=== PATIENT | female | born 1965 | race Caucasian/White ===

== ENCOUNTER 2021-10-26 13:10 | Outpatient (RCR) | payer OTHER, SELFPAY | END 2021-11-13 23:59 | disposition home or self-care (01) | LOC: CCIC 13:10 | PROVIDERS: PCP Family Medicine; Visit Provider Internal Medicine Hematology & Oncology | DX: C50.912 Malignant neoplasm of unspecified site of left female breast (principal); C50.911 Malignant neoplasm of unspecified site of right female breast; Z17.0 Estrogen receptor positive status [ER+] | CPT/HCPCS: 99202; 99205 ==

== ENCOUNTER 2021-12-01 14:13 | Outpatient (CLI) | payer OTHER, SELFPAY ==
--- NOTE | 2021-12-01 14:30 | XR_ITS ---
Final Report Patient: YASH BAEZA Facility:?[facility] Patient ID:?[id number] :?[id number] Study:?DEXA Spine DEXA - Spine/Hips-12/01/2021 2:59:40 PM Ordering Physician:Dary Sandhu Final Report: DXA BONE MINERAL DENSITY STUDY Current height (in): 61. Weight (lb): 180. Menopause age: 50. Ethnicity: White. 1. Have you had a previous hip or vertebral fracture? No. 2. Have you had any fractures during your adult life which did not result from significant trauma (e.g., auto accident)? No. 3. Did either of your parents have a hip fracture? No. 4. Do you smoke? No. 5. Have you ever taken Glucocorticoids? No. 6. Do you have rheumatoid arthritis? No. 7. Do you have secondary osteoporosis? No. 8. Do you drink 3 or more alcoholic drinks per day? No. 9. Are you being treated for osteoporosis? No. 10. Have you ever taken any of the following medications: Actonel, Evista, Fosamax, Miacalcin, Reclast, Boniva, Forteo, HRT (i.e. estrogen/hormone therapy), Protelos, Prolia, Vitamin D, Calcium, other ? please specify. ANSWER: Yes, Vitamin D, HRT. 11. Do you have any of the following medical conditions: Anorexia or bulimia, asthma or emphysema, end stage renal disease, hyperparathyroidism, any seizure disorders, cancer, inflammatory bowel diseases, hysterectomy, other ? please specify. ANSWER: Yes, Asthma or emphysema, cancer. 12. What was your maximum height (inches)? 61. 13. Do you perform weight bearing exercise regularly? Yes. 14. Do you regularly consume dairy products? Yes. 15. Do you drink caffeinated beverages? Yes. 16. At what age did your period start? 10. 17. Are you premenopausal? No. 18. How many full term pregnancies have you had? 2. 19. Have you ever missed your period for more than 6 months in a row (not including or menopause)? No. TECHNIQUE: Bone mineral density study was performed using the [employer]. FINDINGS: The results of the study expressed as bone mineral density (BMD) are as follows: Lumbar spine L1 to L4: BMD: 0.980 g/cm2. T-score: -0.6. Z-score: 0.7. Neck Left: BMD: 0.738 g/cm2. T-score: -1.0. Z-score: 0.2. Right: BMD: 0.694 g/cm2. T-score: -1.4. Z-score: -0.2. Total Left: BMD: 0.896 g/cm2. T-score: -0.4. Z-score: 0.5. Right: BMD: 0.873 g/cm2. T-score: -0.6. Z-score: 0.3. IMPRESSION: Osteopenia. FRAX 10-year Fracture Risk Major Osteoporotic Fracture: 7.0 percent Hip Fracture: 0.5 percent Reported Risk Factors: [place] () Neck BMD = 0.694, BMI = 34.0 Anton Majano M.D. Diagnostic Radiologist [email or web address] D& Transcribed: 5: 45 p.m. JAMES/Dictated by: Anton Majano MD @ 12/01/2021 3:27:00 PM (Electronic Signature)
== END 2021-12-01 14:14 | disposition home or self-care (01) ==
LOC: RAD 14:15
PROVIDERS: PCP Nurse Practitioner Family; Visit Provider Internal Medicine Hematology & Oncology
DX: C50.919 Malignant neoplasm of unspecified site of unspecified female breast (principal); M85.89 Other specified disorders of bone density and structure, multiple sites
CPT/HCPCS: 77080

== ENCOUNTER 2022-03-29 09:45 | Outpatient (RCR) | payer OTHER, SELFPAY | END 2022-06-26 23:59 | disposition home or self-care (01) | LOC: CCIC 09:45 | PROVIDERS: PCP Nurse Practitioner Family; Visit Provider Internal Medicine Hematology & Oncology | DX: C50.911 Malignant neoplasm of unspecified site of right female breast (principal); C50.912 Malignant neoplasm of unspecified site of left female breast; N61.0 Mastitis without abscess; L59.8 Other specified disorders of the skin and subcutaneous tissue related to radiation | CPT/HCPCS: 99212; 99214; 99215 ==

== ENCOUNTER 2022-04-04 09:52 | Outpatient (CLI) | payer OTHER, SELFPAY ==
--- NOTE | 2022-04-04 09:45 | CRLHL7_ITS ---
For Patients: As a result of the Cures Act, medical imaging exams and procedure reports are released immediately into your electronic medical record. You may view this report before your referring provider. If you have questions, please contact your health care provider. DIGITAL DIAGNOSTIC BILATERAL MAMMOGRAM USING TOMOSYNTHESIS AND COMPUTER-AIDED DETECTION BILATERAL BREAST ULTRASOUND CLINICAL HISTORY: BILATERAL breast redness/warmth. COMPARISON: 08/29/2021, 08/24/2021, 08/12/2021. TECHNIQUE: Digital BILATERAL mammogram in four projections. Tomosynthesis and CAD were utilized. Real-time ultrasound imaging of BILATERAL breast with imaging documentation. BREAST COMPOSITION: There are areas of scattered fibroglandular density. FINDINGS: Bilateral 3D CC/MLO mammogram submitted bilaterally. Post treatment changes are present bilaterally including BILATERAL lumpectomies and BILATERAL postradiation change. Skin thickening noted bilaterally, RIGHT greater than LEFT. No adenopathy. Expected scar tissue present within the lumpectomy sites bilaterally. No evidence of suspicious masses or suspicious architectural distortion. Targeted BILATERAL ultrasound examination performed. On the RIGHT, targeted sonogram to an area of redness at 9 o`clock 6 cm from the nipple performed. Skin thickening is present with mild subcutaneous edema. No underlying lesion. On the LEFT, targeted sonogram performed at 6 o`clock 4 cm from the nipple corresponding to an area of focal tenderness. Again, skin thickening noted with subcutaneous edema. No fluid collection or suspicious mass. IMPRESSION: BILATERAL post lumpectomy/XRT changes with skin thickening and subcutaneous edema. No evidence of abscess or suspicious mass. RECOMMENDATIONS: Clinical follow-up. Results and recommendations discussed with the patient. BI-RADS Category 2: Benign A lay language report of this examination will be provided to the patient. Dictated by Anton Majano MD @ 04/04/2022 11:36:15 AM jj/Dictated by: Anton Majano MD @ 04/04/2022 11:36:00 AM (Electronically Signed)
--- NOTE | 2022-04-04 10:15 | CRLHL7_ITS ---
For Patients: As a result of the Cures Act, medical imaging exams and procedure reports are released immediately into your electronic medical record. You may view this report before your referring provider. If you have questions, please contact your health care provider. PLEASE SEE DIGITAL DIAGNOSTIC BILATERAL MAMMOGRAM PERFORMED SAME DAY CRL:norma green/Dictated by: Anton Majano MD @ 04/04/2022 11:36:00 AM (Electronically Signed)
== END 2022-04-04 09:53 | disposition home or self-care (01) ==
LOC: MAMMO 09:53
PROVIDERS: PCP Nurse Practitioner Family; Visit Provider Internal Medicine Hematology & Oncology
DX: N61.0 Mastitis without abscess (principal)
CPT/HCPCS: 76642; 77066; G0279

== ENCOUNTER 2023-01-12 16:15 | Emergency (ER) | payer OTHER, SELFPAY ==
[2023-01-12 16:18] VITALS: BP 133/81; PULSE 68; RESP 18; TEMP 36.7; O2SAT 98; BMI 30.4
--- NOTE | 2023-01-12 17:30 | CRLHL7_ITS ---
For Patients: As a result of the Century Cures Act, medical imaging exams and procedure reports are released immediately into your electronic medical record. You may view this report before your referring provider. If you have questions, please contact your health care provider. INDICATION: Vomiting, abdominal pain, diarrhea. TECHNIQUE: CT abdomen and pelvis acquired with 74 cc Isovue 370 IV contrast. COMPARISON: None. FINDINGS: Lower chest: Scattered atelectasis. Liver: Unremarkable. Normal in size and attenuation. No suspicious masses. Gallbladder and bile ducts: Focal hyperdensity about the gallbladder fundus, possibly adenomyomatosis. No inflammation. No biliary dilatation. Pancreas: Unremarkable. No mass or inflammation. Spleen: Scattered granulomas. Normal in size. No masses. Adrenal glands: Unremarkable. No nodules. Kidneys: Unremarkable. No suspicious masses, stones, or hydronephrosis. GI tract: Mild colonic wall thickening accentuated by nondistention.. Normal in caliber. No sign of mass or inflammation. Normal appendix. Vasculature: Mild aortoiliac arterial calcifications. Abdominal aorta is normal in caliber. Mesenteric arteries are patent. Lymph nodes: No lymphadenopathy. Peritoneum/Abdominal Wall: Unremarkable. No sign of mass or infiltration. No free air or significant free fluid. Pelvis: Mildly distended bladder circumferential wall thickening. Bones: Unremarkable for age. IMPRESSION: Mild colonic wall thickening accentuated by nondistention. Low-grade colitis not excluded. Mildly distended bladder with circumferential wall thickening. Recommend correlation with urinalysis if UTI suspected. Otherwise, no acute intra-abdominal/pelvic abnormality. Please note that all CT scans at this facility use dose modulation, iterative reconstruction, and/or weight-based dosing when appropriate to reduce radiation dose to as low as reasonably achievable. Dictated by John Mazariegos MD @ 01/12/2023 6:40:48 PM (Electronically Signed)
[2023-01-12] MEDS: ONDANSETRON 2 MG/ML inj 4 MG IVP (17:50)
[2023-01-12] MEDS: 0.9 % SODIUM CHLORIDE 1000 ml 1,000 ML IV (17:50)
[2023-01-12 17:59] LABS: Basophils Absolute Auto 0.07 K/uL (0.00-0.30); Basophils Percent Auto 1.3 % (0.0-3.0); Hematocrit 38.2 % (33.0-51.0); Hemoglobin* 12.4 gm/dL (12.0-16.0); Immature Granulocytes Abs Auto 0.01 K/uL (0.00-0.30); Immature Granulocytes Pct Auto 0.2 %; Lymphocytes Absolute Auto 1.73 K/uL (0.90-2.90); Lymphocytes Percent Auto 32.3 % (20-44); Mean Corpuscular HGB Conc 33 gm/dL (32-36); Mean Corpuscular Hemoglobin 29 pg (26-34); Mean Corpuscular Volume 89 fL (80-100); Monocytes Percent Auto 8.4 % (0.0-11.0); Neutrophils Absolute Auto 2.62 K/uL (1.7-7.0); Neutrophils Percent Auto 48.8 % (42.0-72.0); Platelet Count* 262 K/uL (140-440); RDW Coefficient of Variation % 12.4 % (11.5-15.5); Red Blood Count 4.31 m/uL (4.00-5.20); White Blood Count* 5.36 K/uL (4.50-11.00)
--- NOTE | 2023-01-12 17:59 | ED_ITS ---
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 She began to feel nauseous on Sunday. Although she works in childcare she has no known sick exposures among the children she cares for. She has had nausea ever since then. She was fairly ill and stayed in bed on Sunday, Sunday, and Sunday. Whenever she tries to eat or drink she gets very nauseous and often will have watery diarrhea. She is not vomiting. She does have some abdominal pain but that is not as intense as the nausea. No fever. No cough. No nasal congestion. No sore throat. Urination has been normal. She has been able to keep some fluids down. She has ongoing nausea, and it just isn't getting better, so her encouraged to come here to the ER today. She has no history of similar episodes of nausea. She indicates that she has had No previous abdominal surgeries. However, medical record indicates that she has had tubal ligation, unilateral oophorectomy, Related Data Home Medications Medication Instructions Recorded Confirmed amitriptyline 150 mg tablet 150 mg PO QDAY 12/28/21 08/10/22 fluticasone propionate 50 2 spray intranasal QDAY 12/28/21 08/10/22 mcg/actuation nasal spray,suspension (Flonase Allergy Relief) ibuprofen 600 mg tablet 600 mg PO Q8H PRN 12/28/21 08/10/22 pravastatin 40 mg tablet 40 mg PO QDAY 12/28/21 08/10/22 Previous Rx's Medication Instructions Recorded anastrozole 1 mg tablet (Arimidex) 1 mg PO QDAY #90 tabs 12/28/21 ciprofloxacin HCl 500 mg tablet 500 mg PO BID #14 tabs 01/12/23 (Cipro) metronidazole 500 mg tablet 500 mg PO TID #21 tabs 01/12/23 prochlorperazine maleate 10 mg 10 mg PO Q8H PRN #10 tabs 01/12/23 tablet (Compazine) Allergies Allergy/AdvReac Type Severity Reaction Status Date / Time No Known Drug Allergies Allergy Verified 08/10/22 14:38 [facility] Medical History (Updated 01/12/23 @ 19:54 by Kirby Ritter MD) Hyperlipidemia ?E78.5 - Hyperlipidemia, unspecified (ICD-10) History of migraine ?Z86.69 - Personal history of other diseases of the nervous system and sense organs (ICD-10) Herpes zoster ?B02.9 - Zoster without complications (ICD-10) Fibromyalgia ?M79.7 - Fibromyalgia (ICD-10) Depression ?F32.A - Depression, unspecified (ICD-10) Chronic insomnia ?F51.04 - Psychophysiologic insomnia (ICD-10) Anxiety ?F41.9 - Anxiety disorder, unspecified (ICD-10) Allergic rhinitis ?J30.9 - Allergic rhinitis, unspecified (ICD-10) Surgical History (Updated 12/26/21 @ 15:43 by Ann-Marie Nelson, DESK MANAGER) History of unilateral oophorectomy ?Z90.721 - Acquired absence of ovaries, unilateral (ICD-10) History of tubal ligation ?Z98.51 - Tubal ligation status (ICD-10) History of tonsillectomy and adenoidectomy ?Z90.89 - Acquired absence of other organs (ICD-10) History of sinus surgery ?Z98.890 - Other specified postprocedural states (ICD-10) History of cervical spinal arthrodesis (2006) ?Z98.1 - Arthrodesis status (ICD-10) History of 2 sections ?Z98.891 - History of uterine scar from previous surgery (ICD-10) S/P bilateral breast lumpectomy ?Z98.890 - Other specified postprocedural states (ICD-10) Social History Smoking Status: Former smoker Do you use any of these nicotine containing products: None Second hand tobacco smoke exposure: No How often do you have a drink containing alcohol: monthly or less How many standard drinks containing alcohol do you have on a typical day: 1 or 2 How often do you have six or more drinks on one occasion: Never AUDIT-C Alcohol total score: 1 Non-prescribed substance use: denies use service: No Exam Narrative: Exam Narrative: Constitutional: Appears well-developed and well-nourished. Alert. Conversant. Non toxic. She is nauseous and has some mild retching during our evaluation but no vomiting. HENT: Head: Atraumatic. Nose: Nose normal. Mouth/Throat: Oral mucosa is clear and dry but not desiccated or cracked. no trismus. Pharynx normal. Tonsils symmetric. No tonsillar enlargement, erythema, or exudate. Eyes: Conjunctivae normal. EOM normal. Pupils equal, round, and reactive to light. No scleral icterus. Neck: Normal range of motion. Neck supple. No tracheal deviation present. Cardiovascular: Normal rate, regular rhythm. No gallop. No friction rub. No murmur heard. Symmetric radial artery pulses Pulmonary/Chest: Effort normal. No stridor. No respiratory distress. No wheezes. No rales. No rhonchi . Abdominal: Soft. Bowel sounds normal. No distension. No mass. Epigastric tenderness and mild left-sided tenderness. No rebound. No guarding. No definite right upper quadrant tenderness or Hinton sign. No significant right lower quadrant tenderness. Musculoskeletal: RUE: Normal range of motion. No tenderness. No deformity LUE: Normal range of motion. No tenderness. No deformity RLE: Normal range of motion. No edema. No tenderness. No deformity LLE: Normal range of motion. No edema. No tenderness. No deformity Lymph: No cervical adenopathy. Neurological: Alert and oriented to person, place, and time. Normal strength. CN II-VII intact. No sensory deficit. GCS eye subscore is 4. GCS verbal subscore is 5. GCS motor subscore is 6. Normal coordination Skin: Skin is warm and dry. No rash noted. No pallor. Normal capillary refill. Psychiatric: Normal mood. Normal affect allowing for nausea. Const: Vital Signs, click to edit/add: Vital Signs - 24 hr 01/12/23 16:18 Temperature 98.1 F Pulse Rate [Right Pulse Oximeter] 68 Respiratory Rate 18 Blood Pressure [Ri ght Upper Arm] 133/81 Pulse Oximetry 98 Oxygen Delivery Me thod Room Air Course Vital Signs Vital signs: Initial Vital Signs Temperature 98.1 F 01/12/23 16:18 Temperature Source Temporal Artery Scan 01/12/23 16:18 Pulse Rate 68 01/12/23 16:18 Respiratory Rate 18 01/12/23 16:18 Blood Pressure 133/81 01/12/23 16:18 Blood Pressure Mean 98 01/12/23 16:18 Blood Pressure Position Sitting 01/12/23 16:18 Pulse Oximetry 98 01/12/23 16:18 Oxygen Delivery Method Room Air 01/12/23 16:18 Vital Signs Temperature 98.1 F 01/12/23 16:18 Pulse Rate 68 01/12/23 16:18 Respiratory Rate 18 01/12/23 16:18 Blood Pressure 133/81 01/12/23 16:18 Pulse Oximetry 98 01/12/23 16:18 Oxygen Delivery Method Room Air 01/12/23 16:18 Temperature 98.1 F 01/12/23 16:18 Pulse Rate 68 01/12/23 16:18 Respiratory Rate 18 01/12/23 16:18 Blood Pressure 133/81 01/12/23 16:18 Pulse Oximetry 98 01/12/23 16:18 Oxygen Delivery Method Room Air 01/12/23 16:18 Medical Decision Making MDM Narrative Medical decision making narrative: Presented to the Emergency Department with nausea, diarrhea, mild abdominal discomfort, fatigue ongoing for the past 5-6 days. Differential is broad. No history of head trauma or other focal neurologic deficits disease suggest a SECURITIES TRADER pathology. She has not had any cough or fever but consider atypical presentation of coronavirus. COVID PCR negative. No hypoxia. The differential diagnosis includes: Appendicitis, Bowel Obstruction, Ulcer, Ischemia, Cholecystitis, Diverticulitis, Pancreatitis, UTI, kidney stone, Enteritis/Colitis, amongst many other etiologies. Laboratory testing does not reveal a cause for the patient's pain. Incidentally white blood cell count differential shows 9% eosinophils, a bit higher than expected. Unclear etiology. No history of allergic phenomenon. No recent new medications to suggest JO ANN SS. CT imaging shows evidence for possible mild bladder wall thick ening however urinalysis is essentially negative for UTI. There is trace bacteriuria and sediment but no pyuria, negative nitrite. CT scan also suggest possible mild colitis (versus under distention of the:). This could correlate with the patient's diarrhea and nausea. No evidence for any surgical pathology such as perforation, abscess. Patient is nontoxic. No recent antibiotics to raise risk for C diff. Will order stool culture and C diff none the less. We will start the patient empirically on Cipro and Flagyl for colitis. No life threatening cause or need for emergent surgery or hospital admission is detected today. The patient was advised that if symptoms do not completely resolve within another 2-3 days re-evaluation with primary care or return to the ED is indicated. Follow-up within 1-2 weeks to recheck CBC. The patient also understands that if they worsen, they should return to the ER right away. I discussed the uncertainty about the diagnosis and answered the patient's questions. Abdominal pain return precautions discussed. Prescriptions for Cipro 500 b.i.d. for 7 days, Flagyl 500 t.i.d. for 7 days, Compazine for nausea. Note. She will need something for nausea overnight tonight. Prescription for Zofran 0 DT that she can use once tonight if needed. Unfortunately [facility] only allows prescription of 10 tablets. This was provided. Patient does have p rolonged QT. She will avoid repetitive Zofran use. Follow-up with primary care. Lab Data Labs: Lab Results 01/12/23 01/12/23 Range/Units 17:46 18:12 WBC 5.36 (4.50-11.00) K/uL RBC 4.31 (4.00-5.20) m/uL Hgb 12.4 (12.0-16.0) gm/dL Hct 38.2 (33.0-51.0) % MCV 89 (80-100) fL MCH 29 (26-34) pg MCHC 33 (32-36) gm/dL RDW Coeff of Kacey 12.4 (11.5-15.5) % Plt Count 262 (140-440) K/uL Neut % (Auto) 48.8 (42.0-72.0) % Lymph % (Auto) 32.3 (20-44) % Stanley % (Auto) 8.4 (0.0-11.0) % Eos % (Auto) 9.0 H (0.0-7.0) % Baso % (Auto) 1.3 (0.0-3.0) % Neut # (Auto) 2.62 (1.7-7.0) K/uL Lymph # (Auto) 1.73 (0.90-2.90) K/uL Stanley # (Auto) 0.50 (0.00-0.90) K/UL Eos # (Auto) 0.50 (0.00-0.50) K/uL Baso # (Auto) 0.07 (0.00-0.30) K/uL Abs Immat Gran (auto) 0.01 (0.00-0.30) K/uL Imm/Tot Granulo (auto) 0.2 % Sodium 142 (135-149) mmol/L Potassium 3.7 (3.6-5.1) mmol/L Chloride 107 (96-114) mmol/L Carbon Dioxide 24 (20-32) mmol/L Anion Gap 11 (7-15) mEq/L BUN 12 (7-30) mg/dL Creatinine 0.8 (0.5-1.5) mg/dL Estimated Creat Clear 57.14 Estimated GFR 85 ml/min Glucose 92 (60-115) mg/dL Calcium 9.6 (8.4-10.6) mg/dL Total Bilirubin 0.3 (0.1-1.5) mg/dL AST 33 (12-35) U/L ALT 24 (4-35) U/L Alkaline Phosphatase 60 (40-150) U/L Total Protein 7.5 (6.0-8.3) g/dL Albumin 4.6 (3.3-5.0) g/dL Lipase 200 (23-300) U/L Urine Color Yellow (Yellow) Urine Appearance Cloudy A (Clear) Urine pH 7.0 (5.0-8.5) Ur Specific Troy 1.015 (1.000-1.030) Urine Protein Negative (Negative) Urine Glucose (UA) Negative (Negative) Urine Ketones Negative (Negative) Urine Blood Negative (Negative) Urine Nitrite Negative (Negative) Urine Bilirubin Negative (Negative) Urine Urobilinogen 0.2 (0.2-1.0) Ur Leukocyte Esterase Negative (Negative) Urine RBC 0-2 (0-2) Urine WBC 0-2 (0-5) Ur Squamous Epith Cells Few (None-Few) Amorphous Sediment Moderate A (None) Urine Bacteria Few A (None) SARS-CoV-2 (PCR) Negative SARS-CoV-2 (Negative) Influenza Type A (PCR) Negative PCR FLU A (Negative) Influenza Type B (PCR) Negative PCR FLU B (Negative) RSV (PCR) Negative PCR RSV (Negative) Imaging Data CT scan - abdomen: Attestation: I have reviewed the pertinent imaging results. Radiologist's impression: IMPRESSION: Mild colonic wall thickening accentuated by nondistention. Low-grade colitis not excluded. Mildly distended bladder with circumferential wall thickening. Recommend correlation with urinalysis if UTI suspected. Otherwise, no acute intra-abdominal/pelvic abnormality. ECG Data Attestation: I personally reviewed and interpreted this ECG as follows: Interpretation: Sinus bradycardia with a rate of 59. Computer notes sinus tach with 2: 1 av conduction. This is inaccurate. The computer is sensing T-waves as P-waves. [place] 138 QRS axis normal axis. ST segment/T wave: T-wave flattening. No ST segment elevation or depression. QTc: 505. Prolonged QT Discharge Plan Discharge Clinical Impression: Colitis, Diarrhea, Nausea Patient Disposition: Home, Self-Care Condition: Stable Instructions: Acute Nausea and Vomiting (ED), Colitis (ED) Additional Instructions: As we discussed, please come back to the ER right away if you have worsening symptoms such as uncontrolled nausea and vomiting, dehydration, weakness, high fever, worsening abdominal pain, or if you have any other problems Please complete the course of antibiotics. If your stool culture grows an unusual source of infection we may contact you to change your antibiotic regimen. Please follow-up with your regular doctor within 1-2 weeks for recheck labs. We notice that 1 kind of white blood cell in your body (your eosinophil count) is slightly elevated today. Prescriptions: New ciprofloxacin HCl [Cipro] 500 mg tablet 500 mg PO BID Qty: 14 0RF metronidazole 500 mg tablet 500 mg PO TID Qty: 21 0RF prochlorperazine maleate [Compazine] 10 mg tablet 10 mg PO Q8H PRNQty: 10 0RF No Action amitriptyline 150 mg tablet 150 mg PO QDAY fluticasone propionate [Flonase Allergy Relief] 50 mcg/actuation spray,suspension 2 spray intranasal QDAY Rx Instructions: administer into each nostril pravastatin 40 mg tablet 40 mg PO QDAY ibuprofen 600 mg tablet 600 mg PO Q8H PRN anastrozole [Arimidex] 1 mg tablet 1 mg PO QDAY Qty: 90 3RF Follow Up/Referrals: Nadya Wagner, ELIAS, DESK MANAGER [Primary Care Provider] - Stand Alone Forms: [employer] Info Instructions
[2023-01-12 18:04] LABS: Slide Review Reflex No
[2023-01-12 18:11] LABS: Albumin* 4.6 g/dL (3.3-5.0); Chloride* 107 mmol/L (96-114)
[2023-01-12 18:12] LABS: Potassium* 3.7 mmol/L (3.6-5.1); Sodium* 142 mmol/L (135-149)
[2023-01-12 18:14] LABS: Anion Gap 11 mEq/L (7-15); Aspartate Amino Transferase* 33 U/L (12-35); Bilirubin Total* 0.3 mg/dL (0.1-1.5); Carbon Dioxide* 24 mmol/L (20-32); Creatinine* 0.8 mg/dL (0.5-1.5); Est. Creatinine Clearance* 57.14; Estimated Glomerular Filt Rate 85 ml/min; Total Protein* 7.5 g/dL (6.0-8.3)
[2023-01-12 18:15] LABS: Alanine Aminotransferase* 24 U/L (4-35); Alkaline Phosphatase* 60 U/L (40-150); Blood Urea Nitrogen* 12 mg/dL (7-30); Calcium* 9.6 mg/dL (8.4-10.6); Glucose* 92 mg/dL (60-115); Lipase* 200 U/L (23-300)
[2023-01-12 18:20] LABS: Appearance Urine Cloudy (Clear); Bilirubin Urine Negative (Negative); Blood Urine Negative (Negative); Color Urine Yellow (Yellow); Glucose Urine Negative (Negative); Ketones Urine Negative (Negative); Leukocyte Esterase Urine Negative (Negative); Nitrite Urine Negative (Negative); Protein Urine Negative (Negative); Specific Gravity Urine 1.015 (1.000-1.030); Urobilinogen Urine 0.2 (0.2-1.0)
[2023-01-12 18:31] LABS: Amorphous Sediment Urine Moderate; Bacteria Urine Few; RBC Urine 0-2 (0-2); Squamous Epithelial Cell Urine Few (None-Few); WBC Urine 0-2 (0-5)
[2023-01-12 18:36] LABS: PCR FLU A Negative PCR FLU A (Negative); PCR FLU B Negative PCR FLU B (Negative); PCR RSV Negative PCR RSV (Negative)
[2023-01-12 18:45] LABS: SARS PCR* Negative SARS-CoV-2 (Negative)
[2023-01-14 15:46] LABS: C.Difficile Negative (Negative); CDIFFEPI 027 PRESUMPTIVE NEGATIVE (Negative)
== END 2023-01-12 20:20 | disposition home or self-care (01) ==
PROVIDERS: Emergency Provider Emergency Medicine; PCP Nurse Practitioner Family
DX: K52.9 Noninfective gastroenteritis and colitis, unspecified (principal); R11.2 Nausea with vomiting, unspecified
CPT/HCPCS: 36415; 74177; 80053; 81001; 83690; 85025; 87045; 87046; 87086; 87427; 87493; 87631; 93005; 96374; 99283; 99284; J2405; J7030; Q9967

== ENCOUNTER 2023-01-31 09:30 | Outpatient (RCR) | payer OTHER, SELFPAY ==
--- NOTE | 2022-07-10 15:18 | ONC.NURNOTE ---
Pressurization Mechanic needed to move patient to Clara Diana' schedule on . LMOM for patient stating that her appointment was moved to [place] schedule. She was informed if she feels that she needs to see Dr. Hearn, that will need to move appointment out.
[2023-01-25 13:46] LABS: Appearance Urine Clear (Clear); Bilirubin Urine Negative (Negative); Blood Urine Negative (Negative); Color Urine Yellow (Yellow); Glucose Urine Negative (Negative); Ketones Urine Negative (Negative); Leukocyte Esterase Urine Negative (Negative); Nitrite Urine Negative (Negative); Protein Urine Negative (Negative); Specific Gravity Urine 1.025 (1.000-1.030); Urobilinogen Urine 0.2 (0.2-1.0)
[2023-01-25 13:51] LABS: Hematocrit 39.8 % (33.0-51.0); Hemoglobin* 12.7 gm/dL (12.0-16.0); Lymphocytes Percent Auto 28.9 % (20-44); Mean Corpuscular HGB Conc 32 gm/dL (32-36); Mean Corpuscular Hemoglobin 29 pg (26-34); Mean Corpuscular Volume 89 fL (80-100); Monocytes Percent Auto 8.4 % (0.0-11.0); Neutrophils Percent Auto 52.8 % (42.0-72.0); Platelet Count* 272 K/uL (140-440); RDW Coefficient of Variation % 12.4 % (11.5-15.5); Red Blood Count 4.45 m/uL (4.00-5.20); White Blood Count* 6.08 K/uL (4.50-11.00)
[2023-01-25 13:52] LABS: Basophils Absolute Auto 0.06 K/uL (0.00-0.30); Eosinophils Percent Auto 8.7 % (0.0-7.0); Immature Granulocytes Abs Auto 0.01 K/uL (0.00-0.30); Immature Granulocytes Pct Auto 0.2 %; Lymphocytes Absolute Auto 1.76 K/uL (0.90-2.90); Neutrophils Absolute Auto 3.21 K/uL (1.7-7.0)
[2023-01-25 13:57] LABS: RBC Urine 0-2 (0-2); WBC Urine 0-2 (0-5)
[2023-01-25 13:58] LABS: Creatinine* 0.9 mg/dL (0.5-1.5); Est. Creatinine Clearance* 50.79; Estimated Glomerular Filt Rate 74 ml/min
[2023-01-25 13:59] LABS: Slide Review Reflex No
[2023-01-25 13:59] LABS: Calcium* 9.3 mg/dL (8.4-10.6)
--- NOTE | 2023-01-26 15:39 | URNOTE ---
Request received for authorization for [employer] ([id number]). Prior Authorization is not required by [employer], per Serafin Haas (Ref#[id number]).
--- NOTE | 2023-01-30 13:08 | ONC.NURNOTE ---
Received message from Clara Diana PA-C that labs from 01/25/23 were reviewed and she would like pt to come return in one month for a CBC w/diff and CMP, Clara is following her eosinophils. Left message for pt to call to schedule.
[2023-01-31 09:33] VITALS: BP 125/74; PULSE 68; RESP 16; TEMP 35.8; O2SAT 97
[2023-01-31] MEDS: ZOLEDRONIC ACID 4 MG in 0.9 % SODIUM CHLORIDE 100 ml 100 ML 420 MG IVPB (10:15)
== END 2023-02-06 23:59 | disposition home or self-care (01) ==
LOC: CCIC 09:30
PROVIDERS: Physician Assistant; PCP Nurse Practitioner Family; Referring Provider Nurse Practitioner Family; Visit Provider Internal Medicine Hematology & Oncology
DX: C50.911 Malignant neoplasm of unspecified site of right female breast (principal); C50.912 Malignant neoplasm of unspecified site of left female breast; Z17.0 Estrogen receptor positive status [ER+]; M85.80 Other specified disorders of bone density and structure, unspecified site; Z79.811 Long term (current) use of aromatase inhibitors
CPT/HCPCS: 36415; 81001; 82310; 82565; 85025; 96374; 99212; 99214; 99215; J3489

== ENCOUNTER 2023-08-03 13:30 | Outpatient (RCR) | payer OTHER, SELFPAY ==
[2023-02-26 10:43] LABS: Basophils Absolute Auto 0.06 K/uL (0.00-0.30); Basophils Percent Auto 0.6 % (0.0-3.0); Eosinophils Percent Auto 4.8 % (0.0-7.0); Hematocrit 38.8 % (33.0-51.0); Hemoglobin* 12.4 gm/dL (12.0-16.0); Immature Granulocytes Abs Auto 0.01 K/uL (0.00-0.30); Immature Granulocytes Pct Auto 0.1 %; Lymphocytes Percent Auto 14.4 % (20-44); Mean Corpuscular HGB Conc 32 gm/dL (32-36); Mean Corpuscular Hemoglobin 28 pg (26-34); Mean Corpuscular Volume 88 fL (80-100); Neutrophils Percent Auto 73.1 % (42.0-72.0); Platelet Count* 288 K/uL (140-440); RDW Coefficient of Variation % 12.4 % (11.5-15.5); White Blood Count* 10.47 K/uL (4.50-11.00)
[2023-02-26 10:47] LABS: Slide Review Reflex No
[2023-02-26 11:01] LABS: Albumin* 4.4 g/dL (3.3-5.0); Chloride* 110 mmol/L (96-114)
[2023-02-26 11:02] LABS: Potassium* 3.6 mmol/L (3.6-5.1); Sodium* 141 mmol/L (135-149)
[2023-02-26 11:04] LABS: Alkaline Phosphatase* 79 U/L (40-150); Anion Gap 12 mEq/L (7-15); Aspartate Amino Transferase* 24 U/L (12-35); Bilirubin Total* 0.3 mg/dL (0.1-1.5); Blood Urea Nitrogen* 10 mg/dL (7-30); Carbon Dioxide* 19 mmol/L (20-32); Creatinine* 0.7 mg/dL (0.5-1.5); Estimated Glomerular Filt Rate 100 ml/min; Total Protein* 7.8 g/dL (6.0-8.3)
[2023-02-26 11:05] LABS: Alanine Aminotransferase* 16 U/L (4-35); Calcium* 8.7 mg/dL (8.4-10.6); Glucose* 110 mg/dL (60-115)
[2023-08-03 13:53] VITALS: BP 101/66; PULSE 68; RESP 16; TEMP 36.4; O2SAT 97
[2023-08-03 14:04] LABS: Calcium* 9.1 mg/dL (8.4-10.6); Creatinine* 0.8 mg/dL (0.5-1.5); Est. Creatinine Clearance* 56.43; Estimated Glomerular Filt Rate 84 ml/min
[2023-08-03] MEDS: ZOLEDRONIC ACID 4 MG in 0.9 % SODIUM CHLORIDE 100 ml 100 ML 420 MG IVPB (14:43)
== END 2023-08-25 23:59 | disposition home or self-care (01) ==
LOC: CCIC 13:30
PROVIDERS: Clinical Nurse Specialist; PCP Nurse Practitioner Family; Referring Provider Nurse Practitioner Family; Visit Provider Physician Assistant
DX: C50.911 Malignant neoplasm of unspecified site of right female breast (principal); C50.912 Malignant neoplasm of unspecified site of left female breast; Z17.0 Estrogen receptor positive status [ER+]; M85.80 Other specified disorders of bone density and structure, unspecified site; Z79.811 Long term (current) use of aromatase inhibitors
CPT/HCPCS: 36415; 80053; 82310; 82565; 85025; 96374; 99214; G0463; J3489

== ENCOUNTER 2023-10-04 13:32 | Outpatient (RCR) | payer OTHER, SELFPAY | END 2024-04-01 23:59 | disposition home or self-care (01) | LOC: CCIC 13:32 | PROVIDERS: PCP Nurse Practitioner Family; Referring Provider Nurse Practitioner Family; Visit Provider Physician Assistant | DX: C50.911 Malignant neoplasm of unspecified site of right female breast (principal); C50.912 Malignant neoplasm of unspecified site of left female breast; Z17.0 Estrogen receptor positive status [ER+]; M85.80 Other specified disorders of bone density and structure, unspecified site; N64.4 Mastodynia; Z79.811 Long term (current) use of aromatase inhibitors | CPT/HCPCS: 99214; G0463 ==

== ENCOUNTER 2023-11-20 10:22 | Outpatient (CLI) | payer OTHER, SELFPAY ==
--- OUTSIDE RECORDS SUMMARY | 2023-11-20 10:25 | XMS_ITS | Clinical Summary ---
Author Organization [facility] Address [address] [place] [id number] Care Team Providers Care Bottom Crane Operator Name Role Phone [facility], [facility] Primary Care Provider Allergies Active Allergy Reactions Criticality Noted Date Comments Diphenhydramine Hives,Itching,Rash Low 01/09/2019 Penicillin V 06/02/2002 Medications Medication Sig Dispensed Refills Start Date End Date Status fluticasone (FLONASE) 50 MCG/ACT nasal spray Sandy 1-2 sprays into both nostrils daily as needed. Active AMITRIPTYLINE HCL PO Take 100 mg by mouth At Bedtime. Active Pravastatin Sodium (PRAVACHOL PO) Take 40 mg by mouth every evening. Active dexamethasone (DECADRON) 6 MG tablet Take 1.75 tablets (10.5 mg) by mouth once for 1 dose 2 tablet 01/11/2019 Active Active Problems Problem Noted Date Diagnosed Date Unsteady gait 06/25/2012 Anxiety state 09/15/2002 Overview: Problem list name updated by automated process. Provider to review Depressive disorder, not elsewhere classified Esophageal reflux 06/25/2002 Family History Medical History Relation Comments Cancer Father brain ca Diabetes Paternal Grandmother Relation Status Comments Father Paternal Grandmother Social History Tobacco Use Types Packs/Day Years Used Date Smoking Tobacco: Every Day Cigarettes 0.5 22 Alcohol Use Standard Drinks/Week Comments Yes 0 (1 standard drink = 0.6 oz pur e alcohol) occassional Adolescent Education Answer Date Record ed Getting School Help Needed Not on file 01/21 Sex and Gender Information Value Date Recorded Sex Assigned at Not on file Gender Identity Not on file Sexual Orientation Not on file Last Filed Vital Signs Vital Sign Reading Time Taken Comments Blood Pressure 151/104 01/09/2019 1:41 PM CDT Pulse 100 01/09/2019 1:41 PM CDT Temperature 36.9 ??C (98.5 ??F) 01/09/2019 1:41 PM CD T Respiratory Rate 20 01/09/2019 1:41 PM CDT Oxygen Saturation 96% 01/09/2019 1:41 PM CDT Inhaled Oxygen Concentration - - Weight 73.9 kg (163 lb) 06/25/2012 4:14 PM CDT Height 154.9 cm (5' 1) 06/25/2012 4:14 PM CDT Body Mass Index 30.8 06/25/2012 4:14 PM CDT Plan of Treatment Not on file Advance Directives For more information, please contact: [phone] * Full Code (Latest Code Status on File) Date Activated Date Inactivated Comments 06/26/2012 12:05 PM 01/09/2019 1:29 PM * Full Code Date Activated Date Inactivated Comments 06/25/2012 4:57 PM 06/26/2012 12:05 PM Care Teams Bottom Crane Operator Relationship Specialty Start Date End Date [facility], [facility] [address] [address] [place], [place] [id number] PCP - General 01/09/19
--- OUTSIDE RECORDS SUMMARY | 2023-11-20 10:25 | XMS_ITS | Clinical Summary ---
Author Organization [employer] [facility] Address [place], [place] [address] Care Team Providers Care Research Laboratory Manager Name Role Phone Nadya Wagner STERILE TECHNICIAN Primary Care Provider [phone] William Marshall MD Unavailable [phone] Reny Jeronimo NP Unavailable [phone] Allergies Active Allergy Reactions Criticality Noted Date Comments Unlisted Allergen (Include Detail In Comments) Contact Dermatitis,Erythema 09/05/2021 Tegaderm- caused redness/blistering under dressing Medications Medication Sig Dispensed Refills Start Date End Date Status cetirizine (ZYRTEC) 10 mg tabletIndications:S easonal allergic rhinitis due to pollen Take 1 tablet by mouth once daily. 90 tablet 1 09/03/2019 Active anastrozole (ARIMIDEX) 1 mg tablet Take 1 mg by mouth once daily. 12/30/2021 Active ondansetron (ZOFRAN ODT) 4 mg disintegrating tabletIndications:N ausea Place 1 Tablet (4 mg) on the tongue every 8 hours if needed for Nausea/Vomitin g. 10 Tablet 3 02/28/2023 Active FLUoxetine (PROZAC) 20 mg capsuleIndications: Adjustment disorder with mixed anxiety and depressed mood Take 1 Capsule (20 mg) by mouth once daily in the morning. 90 Capsule 3 09/25/2023 Active hydrOXYzine HCL (ATARAX) 25 mg tabletIndications:C hronic pain syndrome,Anxiety,Fi bromyalgia Take 1 Tablet (25 mg) by mouth at bedtime if needed for Anxiety. 180 Tablet 3 09/25/2023 Active pravastatin (PRAVACHOL) 40 mg tabletIndications:H ypertriglyceridemia Take 1 Tablet (40 mg) by mouth at bedtime. 90 Tablet 3 09/25/2023 Active valACYclovir (VALTREX) 500 mg tabletIndications:H /O cold sores Take 1 Tablet (500 mg) by mouth two times daily. 6 Tablet 3 09/25/2023 Active omeprazole (PRILOSEC) 40 mg Delayed-Release capsuleIndications: Gastric reflux Take 1 Capsule (40 mg) by mouth once daily if needed for GI Upset. 30 Capsule 3 09/25/2023 Active topiramate (TOPAMAX) 50 mg tabletIndications:F ibromyalgia,Chronic pain syndrome Take 1 Tablet (50 mg) by mouth two times daily. Take along with 100 mg twice daily for total dose of 150 mg twice daily 60 Tablet 5 11/08/2023 5 Active topiramate (Topamax) 100 mg tabletIndications:F ibromyalgia,Chronic pain syndrome Take 1 Tablet (100 mg) by mouth two times daily. Take along with 50 mg twice daily for total dose of 150 mg twice daily 60 Tablet 5 11/08/2023 5 Active predniSONE (DELTASONE) 20 mg tabletIndications:A cute cough,Acute non-recurrent maxillary sinusitis Take 3 Tablets (60 mg) by mouth once daily with a meal for 2 days, THEN 2 Tablets (40 mg) once daily with a meal for 2 days, THEN 1 Tablet (20 mg) once daily with a meal for 2 days. 12 Tablet 11/20/2023 4 Active doxycycline monohydrate 100 mg capsuleIndications: Acute cough,Acute non-recurrent maxillary sinusitis Take 1 Capsule (100 mg) by mouth two times daily for 7 days. 14 Capsule 11/20/2023 4 Active beclomethasone dipropionate (Qvar RediHaler) 80 mcg/actuation HFAb HFA inhalerIndications: Chronic cough Inhale 1 Puff by mouth two times daily. Doesn't need a spacer or shaking. 10.6 g 5 11/20/2023 Active fluticasone (50 mcg per actuation) nasal solution (FLONASE)Indication s:Acute non-recurrent maxillary sinusitis Inhale 1 [place] into affected nostril(s) once daily. 16 g 11/20/2023 Active albuterol HFA (PRO-AIR; VENTOLIN; PROVENTIL) 90 mcg/actuation inhalerIndications: Acute cough Inhale 2 Puffs by mouth every 4 hours if needed for Shortness Of Breath or Wheezing. 18 g 11/20/2023 Active albuterol HFA 90 mcg/actuation inhalerIndications: Cough Inhale 2 Puffs by mouth every 4 hours if needed. 1 Inhaler 3 12/25/2017 4 Discontinued (Reorder (E-cancel not sent)) beclomethasone dipropionate (Qvar RediHaler) 80 mcg/actuation HFAb HFA inhalerIndications: Chronic cough Inhale 1 Puff by mouth two times daily. Doesn't need a spacer or shaking. 10.6 g 5 10/12/2022 4 Discontinued (Reorder (E-cancel not sent)) fluticasone (50 mcg per actuation) nasal solution (FLONASE)Indication s:Chronic pansinusitis Inhale 1 [place] into affected nostril(s) once daily. 16 g 10/12/2022 4 Discontinued (Reorder (E-cancel not sent)) topiramate (Topamax) 100 mg tabletIndications:F ibromyalgia,Chronic pain syndrome Take 1 Tablet (100 mg) by mouth two times daily. 60 Tablet 5 04/25/2023 4 topiramate (TOPAMAX) 50 mg tabletIndications:F ibromyalgia,Chronic pain syndrome TAKE 1 TABLET BY MOUTH TWO TIMES DAILY. 60 Tablet 10/10/2023 4 Discontinued (Reorder (E-cancel not sent)) topiramate (TOPAMAX) 50 mg tabletIndications:F ibromyalgia,Chronic pain syndrome Take 1 Tablet (50 mg) by mouth two times daily. Take along with 100 mg twice daily for total dose of 150 mg twice daily 60 Tablet 10/30/2023 4 Discontinued (Reorder (E-cancel not sent)) topiramate (Topamax) 100 mg tabletIndications:F ibromyalgia,Chronic pain syndrome Take 1 Tablet (100 mg) by mouth two times daily. Take along with 50 mg twice daily for total dose of 150 mg twice daily 60 Tablet 10/30/2023 Discontinued (Reorder (E-cancel not sent)) Hospital, Clinic, or Other Facility Administered Medication Ordered Dose Route Frequency Start Date End Date Status albuterol-ipratropium (2.5-0.5 mg) in 3 mL NEBULIZATION solution 3 mL (DUONEB)Indications:Acute cough,Wheezing 3 mL NEB ONE TIME 11/20/2023 11/20/2023 Ended Active Problems Problem Noted Date Diagnosed Date Gastritis 03/12/2023 Prediabetes 10/11/2022 Chronic pain syndrome 09/28/2022 Bilateral primary osteoarthritis of knee 023 Overview: June 2022: only Left knee cortisone injection. Bilateral malignant neoplasm of breast in female, estrogen receptor positive 09/06/2021 Cancer Staging:Clinical stage from 09/06/2021:Stage IA(cT1b, cN0(f), cM0, G1, ER+, LA+, HER2-) - Signed by William Marshall MD on 09/06/2021 Elevated blood pressure read ing without diagnosis of hypertension 08/03/2021 Hyperopia of both eyes with astigmatism and pres byopia 02/11/2021 Routine adult health maintenance 04/04/2019 Overview: Colonoscopy 03/2019 normal, repeat in 10 years Obesity, unspecified 04/24/2012 Hypertriglyceridemia 02/16/2011 Impaired fasting glucose 02/16/2011 Sinus polyp 01/19/2010 Viral warts, unspecified 01/12/2009 Major depressive disorder, recurrent episode, un specified 05/22/2007 Overview: hospitalized x 3 Pain in joint, shoulder region 10/03/2006 Anxiety state, unspecified 04/06/2006 Dysthymic disorder 10/27/2005 Other chronic sinusitis 09/21/2005 RHINITIS - ALLERGIC 10/04/2004 Fibromyalgia Resolved Problems Problem Noted Date Diagnosed Date Resolved Date Bipolar I disorder, most rec ent episode (or current) manic, in full remission 05/22/20072007 Overview: hospitalized x 3 SINUSITIS - ACUTE 10/04/2004 09/21/2005 Depressive disorder, not elsewhere classified 08/25/19 04 10/03/2006 Encounters Date Type Department Care Team Description 11/20/2023 9:10 AM CDT Office Visit [facility] [address] [place] [address] Nadya Wagner, ASAD Cough 11/20/2023 Travel 11/08/2023 Travel 10/30/2023 Refill [facility] [address] [place] [address] Reny Jeronimo NP Refill Request 10/09/2023 Refill [facility] [address] [phone] Reny Jeronimo NP Refill Request (Topiramate) 09/25/2023 3:50 PM CDT Office Visit [facility] [address] [place] [address] Nadya Wagner NP Medication Management 09/25/2023 Travel 09/20/2023 Refill [facility] [address] [place] [address] Nadya Wagner NP Refill Request (Hydroxyzine Hcl) from Last 3 Months Immunizations Name Administration Dates Next Due DT (Age < 7 years) 01/12/2006 Influenza, IIV3 (Age 6-35 mos) 02/16/2011 Influenza, IIV3 (Age >=3 years) 03/01/2012,02/16 Influenza, IIV4 03/18/2018 Tdap 08/03/2021,02/16/2011 Zoster (Shingrix-RZV, recombinant) 08/03/2021 Family History Medical History Relation Name Comments Alcohol/Drug Brother 1 AIDs Heart Disease Brother 2 cardiac arrest , s/p stent at 57 Alcohol/Drug Father Cancer Father brain Hypertension Father Cancer-breast Maternal Aunt Alcohol/Drug Mother ETOH Cancer Mother lung Cancer-breast Paternal Aunt Diabetes Paternal Grandmother Other Sister macular degener ation Cancer-colon No Family History Cancer-ovarian No Family History Cancer-prostate No Family History Relation Name Status Comments Brother 1 Brother 2 Alive Father Maternal Aunt Mother Paternal Aunt Alive Paternal Grandmother Sister Alive Social History Tobacco Use Types Packs/Day Years Used Date Smoking Tobacco: Former Cigarettes Smokeless Tobacco: Never Tobacco Cessation:Counseling Given: Not Answered Comments:social smoker; quit in december 2006-no exposure Alcohol Use Standard Drinks/Week Comments Yes 2 (1 standard drink = 0.6 oz pur e alcohol) once a week. PHQ-2 Answer Date Recorded PHQ-2 TOTAL SCORE 0 09/25/2023 Social Connections Answer Date Recorded Frequency of Communication with Friends and Fami ly Not on file 04/01/2023 Financial Resource Strain Answer Date R ecorded Difficulty of Paying Living Expenses 3 03/29/2022 Difficulty of Paying Living Expenses Not on file 03/29/2022 Food Insecurity Answer Date Recorded Worried About Running Out of Food in the Last Ye ar 1 03/29/2022 Transportation Needs Answer Date Record ed Lack of Transportation (Medical) 1 03/29/2022 Housing Stability Answer Date Recorded Unable to Pay for Housing in the Last Year 1 03/29/2022 Sex and Gender Information Value Date Recorded Sex Assigned at Not on file Gender Identity Not on file Sexual Orientation Not on file Obstetrics History Para Term AB IAB SAB Ectopic Multiple Livin g Live Births 2 2 0 2 0 0 0 0 0 2 Date Outcome GA Total Labor Labor/2nd/3rd Weight Sex Type Anes PTL Akiko A1 A5 Name Clin Last Filed Vital Signs Vital Sign Reading Time Taken Comments Blood Pressure 124/70 11/20/2023 9:20 AM CDT Pulse 74 11/20/2023 9:20 AM CDT Temperature 36.8 ??C (98.3 ??F) 11/20/2023 9:20 AM CD T Respiratory Rate 14 03/20/2023 11:56 AM AUTOMOBILE SEAT COVER INSTALLER Oxygen Saturation 97% 11/20/2023 9:51 AM CDT Inhaled Oxygen Concentration - - Weight 69.9 kg (154 lb) 11/20/2023 9:20 AM CDT Height 154.9 cm (5' 1) 03/12/2023 1:08 PM AUTOMOBILE SEAT COVER INSTALLER Body Mass Index 29.1 03/12/2023 1:08 PM AUTOMOBILE SEAT COVER INSTALLER Plan of Treatment Health Maintenance Due Date Last Done Comments COVID-19 vaccine series (#1) 1968 Zoster (shingles) series for age 50+ (2 of 2) 09/28/2021 08/03/2021 Mammogram for age 45-75 04/04/2023 04/04/20 22, 08/29/2021, 08/24/2021, Additional history exists Influenza for age 50-64 12/16/2023 03/18/20 18, 03/01/2012, 02/16/2011 BMI (ht and wt on same day) for age 18+ 12/23/2023 12/22/2022, 10/12/2022, 09/28/2022, Additional history exists Depression screening for age 12+ 09/24/2024 09/25/2023, 12/22/2022, 10/12/2022, Additional history exists Pap test for age 21-65 08/27/2025 , 08/27/2020, 12/10/2015, Additional history exists Lipids for age 45-75 09/24/2028 09/25/2023, 10/12/2022, 08/03/2021, Additional history exists Tetanus booster 08/04/2031 08/03/2021, 06/2010, 01/12/2006 [facility] Colonoscopy through age 75 03/20/203303/20, 03/20/2023, 03/20/2023, Additional history exists Hepatitis C screening for age 18-79 Completed 12/03/2018 Tdap Completed 08/03/2021, 02/16/2011 HIV for age 15-65 Completed 10/12/2022 Pneumococcal series for age 6-64 Aged Out No longer eligible based on patient's age to complete this topic Procedures Procedure Name Priority Date/Time Associated Diagnosis Comments HEMOGLOBIN A1C SCREENING Routine 09/25/2023 4:19 PM CDT Prediabetes COMP METABOLIC PANEL Routine 09/25/2023 4:19 PM CDT Fibromyalgia Hypertriglyceridemia Prediabetes LIPID PANEL W REFLEX MEASURED LDL Routine 09/25/2023 4:19 PM CDT Hypertriglyceridemia COLONOSCOPY DIAGNOSTIC Routine 03/20/2023 9:47 AM AUTOMOBILE SEAT COVER INSTALLER Diarrhea, unspecified type LC HIV-1/O/2, 4TH GENERATION Routine 10/12/2022 1:56 PM CDT Encounter for screening for HIV XR MAMMO MACEY BILAT DIAG JAMILA 04/04/2022 12:00 AM AUTOMOBILE SEAT COVER INSTALLER Breast pain Acute mastitis of right breast Bilateral malignant neoplasm of breast in female, unspecified estrogen receptor status, unspecified site of breast (HC) LEAN CONSULTANT THIN PREP PAP SCREEN IMAGED Routine 08/27/2020 4:18 PM CDT ANTI HCV Routine 12/03/2018 3:06 PM CDT Need for hepatitis C screening test from Last 3 Months or Most Recently Relevant to Health Maintenance Results * HEMOGLOBIN A1C SCREENING (09/25/2023 4:19 PM CDT) HEMOGLOBIN A1C SCREENING 5.4 <=6.4 % 09/26/2023 9:25 AM CDT [facility] Blood BLOOD SPECIMEN / Unknown Venipuncture / Unknown 09/25/2023 4:19 PM CDT 09/25/2023 4:19 PM CDT Narrative [facility] 09/26/2023 9:25 AM CDT ? (<5.7%) ?Normal ? (5.7% to 6.4%) ? Indicates prediabetes ? (>=6.5%) ? Confirms diabetes Falsely low levels may be seen with: Recent Transfusion, Recent Significant Blood Loss, Hemolytic Diseases, or Falsely elevated levels may be seen with: Untreated Anemias, Splenectomy Nadya Wagner NP CHEMISTRY [facility] [address] [place] [address], * (ABNORMAL) LIPID PANEL W REFLEX MEASURED LDL (09/25/2023 4:19 PM CDT) CHOLESTEROL,TOTAL 187 100 - 199 mg/dL 09/26/2023 2:17 AM CDT [facility] Comment: Cholesterol, Total Reference Ranges Desirable <200 mg/dL Borderline 200-239 mg/dL High >=240 mg/dL TRIGLYCERIDES 162(H) <150 mg/dL 09/26/2023 2:17 AM CDT [facility] HDL CHOLESTEROL 54 >40 mg/dL 2:17 AM CDT [facility] NON-HDL CHOLESTEROL 133 <145 mg/dl 09/26/2023 2:17 AM CDT [facility] CHOL/HDL RATIO 3.46 <4.50 09/26/2023 2:17 AM CDT [facility] LDL CHOLESTEROL 101 <=130 mg/dL 09/26/2023 2:17 AM CDT [facility] VLDL CHOLESTEROL 32(H) <=30 mg/dL 09/26/2023 2:17 AM CDT [facility] PROVIDER ORDERED STATUS RANDOM 09/26/2023 2:17 AM T [facility] Blood BLOOD SPECIMEN / Unknown Venipuncture / Unknown 09/25/2023 4:19 PM CDT 09/25/2023 4:19 PM CDT Nadya Wagner NP CHEMISTRY [facility] [address] [place] [address], * (ABNORMAL) COMP METABOLIC PANEL (09/25/2023 4:19 PM CDT) SODIUM 142 136 - 145 mmol/L 09/26/2023 2:17 AM CDT [facility] POTASSIUM 4.0 3.5 - 5.1 mmol/L 09/26/2023 2:17 AM CDT [facility] CHLORIDE 108(H) 98 - 107 mmol/L 09/26/2023 2:17 AM [facility] CO2,TOTAL 25 22 - 29 mmol/L 09/26/2023 2:17 AM [facility] ANION GAP 9 5 - 18 09/26/2023 2:17 AM [facility] GLUCOSE 94 70 - 99 mg/dL 09/26/2023 2:17 AM [facility] CALCIUM 9.2 8.8 - 10.2 mg/dL 09/26/2023 2:17 AM [facility] BUN 13 8 - 23 mg/dL 09/26/2023 2:17 AM [facility] CREATININE 0.82 0.50 - 0.90 mg/dL 09/26/2023 2:17 AM [facility] BUN/CREAT RATIO 16 10 - 20 2:17 AM [facility] eGFR 82(L) >90 mL/min/1.7 3m2 09/26/2023 2:17 AM [facility] Comment:As of 2021, eG FR is calculated by the CKD-EPI creatinine equation without race adjustment. ??eGFR can be influenced by muscle mass, exercise, and diet. ??The reported eGFR is an estimation only and is only applicable if the renal function is stable. ALBUMIN 4.5 4.0 - 4.9 g/dL 09/26/2023 2:17 AM [facility] PROTEIN,TOTAL 6.7 6.0 - 8.0 g/dL 09/26/2023 2:17 AM [facility] BILIRUBIN,TOTAL 0.2 0.0 - 1.2 mg/dL 09/26/2023 2:17 AM [facility] ALK PHOSPHATASE 49 35 - 104 IU/L 09/26/2023 2:17 AM [facility] ALT (SGPT) 11 10 - 35 IU/L 09/26/2023 2:17 AM [facility] AST (SGOT) 23 10 - 35 IU/L 09/26/2023 2:17 AM CDT [facility] Blood BLOOD SPECIMEN / Unknown Venipuncture / Unknown 09/25/2023 4:19 PM CDT 09/25/2023 4:19 PM CDT Nadya Wagner STERILE TECHNICIAN CHEMISTRY [facility] [address] [place] [address], * COLONOSCOPY (03/20/2023 10:05 AM AUTOMOBILE SEAT COVER INSTALLER) 03/20/2023 10:0 5 AM AUTOMOBILE SEAT COVER INSTALLER Narrative Transcriptions Mike Alexandre MD - 03/20/2023 11:42 AM CST Patient Name: Manasa Mejia Procedure Date: 03/20/2023 Gender: Female Date of : 1965 Admit Type: Outpatient Procedure: Colonoscopy Proceduralist: Mike Alexandre MD , Ann-Marie Macias (Nurse), Darlene Beckham (Nurse) Referring MD: Nadya Wagner Indications/Pre-Op Diagnosis: Evaluation of abnormal imaging study of the gastrointestinal tract (likely to beclinically significant) , Clinically significant diarrhea of unexplained origin, Last colonoscopy:March 2019 Medications: Fentanyl 100 micrograms IV, Midazolam 2 mgIV, The level of sedation administered wasmoderate Procedure Description: The patient had risks, benefits and alternatives explained to andgave informed consent. The patient had a stable cardiopulmonary status and judged an adequate candidate for conscious sedation. The endoscope PCF-[id number] [id number] was passed through the anus andadvanced to 5 cm into the ileum. The colonoscopy was performed without difficulty. The patient tolerated the procedure well. The quality ofthe bowel preparation was good. The ileocecal valve, appendiceal orifice, and rectum were photographed. Complications: No immediate complications. Estimated Blood Loss & Specimen: Estimated blood loss: none. Specimen collected - Yes and sent to Laboratory Findings: The perianal and digital rectal examinations were normal. Four sessile polyps were found in the rectum. The polyps were 3 mm in size. These polyps were removed with a cold snare. Resection and retrieval were complete. The terminal ileum appeared normal. The exam was otherwise without abnormality. Biopsies were taken with a cold forceps in the entire colon for histology. Impressions/Post-Op Diagnosis: - Four 3 mm polyps in the rectum, removed with a cold snare. Resected and retrieved. - The examined portion of the ileum was normal. - The examination was otherwise normal. - Biopsies were taken with a cold forceps for histology in the entire colon. Recommendation: - Patient has a contact number available for emergencies. The signsand symptoms of potential delayed complications were discussed with the patient. Return to normal activities tomorrow. Written discharge instructions were provided to the patient. - Resume previous diet. - Continue present medications. - Await pathology results. - Repeat colonoscopy is recommended. The colonoscopy date will be determined after pathology results from today's exam become available for review. Moderate Sedation: A time out was performed before the procedure. Moderate (conscious) sedation was administered by the endoscopy nurse and supervised bythe endoscopist. The following parameters were monitored: oxygensaturation, heart rate, blood pressure, EKG, CO2, respiratory rate, adequacy of pulmonary ventilation and reponse to care. Please refer to the patient's medical record flowsheets and nursing notes for moderate sedation details. Total physician intraservice time was 21 minutes. Mike Alexandre MD 03/20/2023 11:42:38 AM This report has been signed electronically. Note Initiated On: 03/20/2023 10:05 AM Procedure Code(s): --- Professional --- 83206, Colonoscopy, flexible; with removalof tumor(s), polyp(s), or other lesion(s) bysnare technique 73899, 59, Colonoscopy, flexible; withbiopsy, single or multiple Diagnosis Code(s): --- Professional --- D12.8, Benign neoplasm of rectum R19.7, Diarrhea, unspecified R93.3, Abnormal findings on diagnosticimaging of other parts of digestive tract CPT copyright 2021 [employer]. All rights reserved. The codes documented in this report are preliminary and upon cco & president reviewmay be revised to meet current compliance requirements. Scope In: 11:16:30 AM Scope Withdrawal Time 0 hours 14 minutes 51 seconds Scope Out: 11:35:46 AM Mike Alexandre MD PROCEDURE ORD * LC HIV-1/O/2, 4TH GENERATION (10/12/2022 1:56 PM CDT) HIV Scr 4th Gen Non Reactive Non Reactive 10/15/2022 8:36 AM CDT [facility] Comment: HIV Negative HIV-1/HIV-2 antibodies and HIV-1 p24 antigen were NOT detected. There is no laboratory evidence of HIV infection. Blood BLOOD SPECIMEN / Unknown Venipuncture / Unknown 10/12/2022 1:56 PM CDT 10/12/2022 1:57 PM CDT Narrative [facility] - 10/15/2022 8:36 AM CDT Performed at: ??[address] ??[id number] 8Th Grade Mathematics Teacher: Per Hawley MD, Phone: ??[phone] Nadya Wagner NP LABORATORY [facility] [place] [address], [place] * XR MAMMO MACEY BILAT DIAG (04/04/2022 12:00 AM AUTOMOBILE SEAT COVER INSTALLER) Anatomical Region Laterality Modality BREASTS, Breast Left, Breast Right Bilateral Mammography Nadya E Wagner STERILE TECHNICIAN MAMMO * LEAN CONSULTANT THIN PREP PAP SCREEN IMAGED (08/27/2020 4:18 PM CDT) Case Report Gynecologic Cytology Report ? Case: [id number] ? Authorizing Provider: ??Lesia Chase MD ? Collected: ? 08/27/2020 1618 ? Ordering Location: ? [facility] [place] ?? Received: ?08/27/2020 1652 ? Clinic ? First Screen: ?Baccam, Minie ? Specimen: ?LEAN CONSULTANT ThinPrep Vial Screening, Cervical ? 09/09/2020 2:54 PM CDT [facility] INTERPRETATION/ RESULT NEGATIVE FOR INTRAEPITHELIAL LESION OR MALIGNANCY (NIL) (none) 09/09/2020 2:54 PM CDT [facility] IMEN ADEQUACY Satisfactory for evaluation No endocervical component seen 09/09/2020 2:54 PM CDT [facility] HPV REQUEST HPV if ASCUS 09/09/2020 2:54 PM CDT [facility] Date of LMP postmenopausal 2:54 PM CDT [facility] Last Pap Date 12/10/15 09/09/2020 2:54 PM CDT [facility] Last Pap Result NIL 2:54 PM CDT [facility] Abnormal Pap or [place] Bx in last 5 years No 09/09/2020 2:54 PM CDT [facility] Menstrual Status Postmenopausal 09/09/2020 2:54 PM CDT [facility] [place] Bx Done Today No 09/09/2020 2:54 PM CDT [facility] Additional Information None given 09/09/2020 2:54 PM CDT [facility] Comment: Cytology is screened at [facility] - [address], [place] [address] and [facility] - [address], [place] [address] and [facility] - [address] [place] [address] Interpreted at [facility] - [address], [place] [address] Automated Review Successful 09/09/2020 2:54 PM CDT [facility] Comment:Specimen processed s uccessfully by automated it administrator device, ThinPrep Imaging System, [employer] Note The pap test is a screening technique, not a diagnostic procedure. It is used primarily to screen for squamous cancers and precursor lesions. Published studies have shown that it is subject to both false negative and false positive results. The pap test should not be used as the sole means to diagnose or exclude pre-malignant and malignant lesions. 09/09/2020 2:54 PM CDT [facility] Other (Cervical) Non-Blood / Unknown 08/27/2020 4:18 PM CDT 08/27/2020 4:52 PM CDT Lesia Chase MD PATHOLOGY/CYTOLOGY Performing Organization Address City/[facility]/ZIP Co de Phone Number [facility] [address] * ANTI HCV (12/03/2018 3:06 PM CDT) HEPATITIS C ANTIBODY Non-React dom Non-React dom 12/03/2018 8:27 PM CDT [facility] Comment:Antibodies to HCV no t detected; does not exclude the possibility of exposure to HCV. Blood BLOOD SPECIMEN / Unknown Venipuncture / Unknown 12/03/2018 3:06 PM CDT 12/03/2018 3:06 PM CDT Lesia Chase MD SEND OUTS Performing Organization Address City/[facility] Co de Phone Number [facility] [address] from Last 3 Months or Most Recently Relevant to Health Maintenance Advance Directives * Full Code (Latest Code Status on File) Date Activated Date Inactivated Comments 03/12/2023 1:04 PM 03/12/2023 4:21 PM Question Answer Comments Code Status Discussion: Unable to Assess Preferences, Provider to review later Care Teams Research Laboratory Manager Relationship Specialty [place] [address] [place] [address] PCP - General Nurse Practitioner 08/12/21 [place] [address] [place] [address] Surgery - Oncology 08/31/21 Reny Jeronimo NP [address] [place] [address] Pain Management Nurse Practitioner - Family 09/28/22
--- OUTSIDE RECORDS SUMMARY | 2023-11-20 10:25 | XMS_ITS | Referral Summary ---
Author Organization [place] Address [address] [place] [address] Care Team Providers Care Health And Wellness Director Name Role Phone [facility], [facility] Primary Care Provider Allergies Active Allergy Reactions Criticality Noted Date Comments Diphenhydramine Hives,Itching,Rash Low 01/09/2019 Penicillin V 06/02/2002 Medications Medication Sig Dispensed Refills Start Date End Date Status fluticasone (FLONASE) 50 MCG/ACT nasal spray [place] 1-2 sprays into both nostrils daily as [...] disorder, not elsewhere classified Esophageal reflux 06/25/2002 Social History Tobacco Use Types Packs/Day Years [...] Advance Directives For more information, please contact: [phone] * Full Code (Latest Code Status on File) Date Activated Date Inactivated Comments 06/26/2012 12:05 PM 01/09/2019 1:29 PM * Full Code Date Activated Date Inactivated Comments 06/25/2012 4:57 PM 06/26/2012 12:05 PM Care Teams Health And Wellness Director Relationship Specialty Start Date End Date [facility], [facility] [address] [place], [place] [phone] PCP - General 01/09/19
--- NOTE | 2023-11-20 10:45 | CRLHL7_ITS ---
For Patients: As a result of the Cures Act, medical imaging exams and procedure reports are released immediately into your electronic medical record. You may view this report before your referring provider. If you have questions, please contact your health care provider. BILATERAL BREAST DIGITAL DIAGNOSTIC WITH TOMOSYNTHESIS AND COMPUTER-AIDED DETECTION LEFT BREAST ULTRASOUND CLINICAL HISTORY: LEFT breast pain. COMPARISON: 04/04/2022, 08/29/2021, 08/12/2021. TECHNIQUE: Digital BILATERAL mammogram in four projections with computer-aided detection. Tomosynthesis was used in this interpretation. Real-time ultrasound imaging of LEFT breast with imaging documentation. BREAST COMPOSITION: The breasts are heterogeneously dense, which may obscure small masses. FINDINGS: 3D CC/MLO BILATERAL mammogram images submitted. Post-treatment changes are present BILATERALLY, status post BILATERAL lumpectomy with XRT. Expected scar tissue noted. No suspicious findings. Targeted LEFT breast ultrasound performed in the area of concern 3 o`clock 12 cm from the nipple. No suspicious findings are present. IMPRESSION: Benign post-treatment changes. RECOMMENDATIONS: Annual bilateral screening mammography. Results and recommendations discussed with the patient. BI-RADS Category 2: Benign A lay language report of this examination will be provided to the patient. Dictated by Anton Majano MD @ 11/20/2023 12:28:15 PM /sp/norma SP/Dictated by: Anton Majano MD @ 11/20/2023 12:28:00 PM (Electronically Signed)
--- NOTE | 2023-11-20 11:15 | CRLHL7_ITS ---
For Patients: As a result of the Century Cures Act, medical imaging exams and procedure reports are released immediately into your electronic medical record. You may view this report before your referring provider. If you have questions, please contact your health care provider. PLEASE SEE BILATERAL BREAST DIAGNOSTIC MAMMOGRAM PERFORMED SAME DAY. CRL:[email or web address] SP/Dictated by: Anton Majano MD @ 11/20/2023 12:28:00 PM (Electronically Signed)
== END 2023-11-20 10:23 | disposition home or self-care (01) ==
PROVIDERS: PCP Nurse Practitioner Family; Visit Provider Physician Assistant
DX: N64.4 Mastodynia (principal); R92.2 Inconclusive mammogram; C50.912 Malignant neoplasm of unspecified site of left female breast; C50.911 Malignant neoplasm of unspecified site of right female breast
CPT/HCPCS: 76642; 77066; G0279

== ENCOUNTER 2023-12-05 15:24 | Outpatient (CLI) | payer OTHER, SELFPAY ==
--- NOTE | 2023-12-05 15:30 | CRLHL7_ITS ---
For Patients: As a result of the Century Cures Act, medical imaging exams and procedure reports are released immediately into your electronic medical record. You may view this report before your referring provider. If you have questions, please contact your health care provider. DXA BONE MINERAL DENSITY STUDY Current height (in): 61.0. Weight (lb): 155.0. Menopause age: 48. Ethnicity: White. 1. Have you had a previous hip or vertebral fracture? No. 2. Have you had any fractures during your adult life which did not result from significant trauma (e.g., auto accident)? No. 3. Did either of your parents have a hip fracture? No. 4. Do you smoke? No. 5. Have you ever taken Glucocorticoids? No. 6. Do you have rheumatoid arthritis? No. 7. Do you have secondary osteoporosis? No. 8. Do you drink 3 or more alcoholic drinks per day? No. 9. Are you being treated for osteoporosis? No. 10. Have you ever taken any of the following medications: Actonel, Evista, Fosamax, Miacalcin, Reclast, Boniva, Forteo, HRT (i.e. estrogen/hormone therapy), Protelos, Prolia, Vitamin D, Calcium, other ??? please specify. ANSWER: Yes. Vitamin D, HRT, Calcium. 11. Do you have any of the following medical conditions: Anorexia or bulimia, asthma or emphysema, end stage renal disease, hyperparathyroidism, any seizure disorders, cancer, inflammatory bowel diseases, hysterectomy, other ??? please specify. ANSWER: Yes, Asthma, Cancer. 12. What was your maximum height (inches)? 61. 13. Do you perform weight bearing exercise regularly? Yes. 14. Do you regularly consume dairy products? Yes. 15. Do you drink caffeinated beverages? Yes. If female: 16. At what age did your period start? 10. 17. Are you premenopausal? No. 18. How many full term pregnancies have you had? 2. 19. Have you ever missed your period for more than 6 months in a row (not including or menopause)? No. TECHNIQUE: Bone mineral density study was performed using the [employer]. FINDINGS: The results of the study expressed as bone mineral density (BMD) are as follows: Lumbar spine L1 to L4: BMD: 1.032 g/cm2. T-score: -0.1. Z-score: 1.3. Neck Left: BMD: 0.693 g/cm2. T-score: -1.4 . Z-score: -0.1. Right: BMD: 0.685 g/cm2. T-score: -1.5 . Z-score: -0.2. Total Left: BMD: 0.858 g/cm2. T-score: -0.7 . Z-score: 0.3. Right: BMD: 0.880 g/cm2. T-score: -0.5 . Z-score: 0.5. IMPRESSION: Osteopenia. *Comparison exams done prior to 09/2019 were performed on different unit, [employer]. COMPARISON: Compared with scan of 12/01/2021, the bone mineral density has increased by 5.3 percent at the spine and decreased by 1.7 percent at the hip. Anton Majano M.D. Diagnostic Radiologist [email or web address] DSM/corona JR/Dictated by: Anton Majano MD @ 12/06/2023 10:05:00 AM (Electronically Signed)
--- OUTSIDE RECORDS SUMMARY | 2023-12-05 15:37 | XMS_ITS | Clinical Summary ---
Author Organization [place] Address [address] [place] [address] Care Team Providers Care Photographer Portrait Name Role Phone [facility], [facility] Primary Care Provider Allergies Active Allergy Reactions Criticality Noted Date Comments Diphenhydramine Hives,Itching,Rash Low 01/09/2019 Penicillin V 06/02/2002 Medications Medication Sig Dispensed Refills Start Date End Date Status fluticasone (FLONASE) 50 MCG/ACT nasal spray [place] 1-2 sprays into both nostrils daily as [...] Advance Directives For more information, please contact: [phone] * Full Code (Latest Code Status on File) Date Activated Date Inactivated Comments 06/26/2012 12:05 PM 01/09/2019 1:29 PM * Full Code Date Activated Date Inactivated Comments 06/25/2012 4:57 PM 06/26/2012 12:05 PM Care Teams Photographer Portrait Relationship Specialty Start Date End Date [facility] [place] [address] [place], [place] [phone] PCP - General 01/09/19
--- OUTSIDE RECORDS SUMMARY | 2023-12-05 15:37 | XMS_ITS | Referral Summary ---
Author Organization [place] Address [address] [place] [address] Care Team Providers Care Gasket Inspector Name Role Phone [facility], [facility] [place] Primary Care Provider Allergies Active Allergy Reactions Criticality Noted Date Comments Diphenhydramine Hives,Itching,Rash Low 01/09/2019 Penicillin V 06/02/2002 Medications Medication Sig Dispensed Refills Start Date End Date Status fluticasone (FLONASE) 50 MCG/ACT nasal spray [place] 1-2 sprays into both nostrils daily as [...] Advance Directives For more information, please contact: [phone] * Full Code (Latest Code Status on File) Date Activated Date Inactivated Comments 06/26/2012 12:05 PM 01/09/2019 1:29 PM * Full Code Date Activated Date Inactivated Comments 06/25/2012 4:57 PM 06/26/2012 12:05 PM Care Teams Gasket Inspector Relationship Specialty Start Date End Date [facility], [facility] [place] [address] [place], [place] [phone] PCP - General 01/09/19
--- OUTSIDE RECORDS SUMMARY | 2023-12-05 15:38 | XMS_ITS | Clinical Summary ---
Author Organization [facility] Address [place], [place] [address] Care Team Providers Care Lpn Rn Name Role Phone Nadya Wanger MARKET SALES MANAGER Primary Care Provider [phone] William Marshall MD Unavailable [phone] Reny Jeronimo NP Unavailable [phone] Allergies Active Allergy Reactions Criticality Noted Date [...] daily 60 Tablet 5 11/08/2023 5 Active beclomethasone dipropionate (Qvar RediHaler) 80 mcg/actuation HFAb HFA inhalerIndications: Chronic cough Inhale 1 Puff by mouth two times daily. Doesn't need a spacer or shaking. 10.6 g 5 11/20/2023 Active fluticasone (50 mcg per actuation) nasal solution (FLONASE)Indication s:Acute non-recurrent maxillary sinusitis Inhale 1 [place] into affected nostril(s) once daily. 16 g [...] nasal solution (FLONASE)Indication s:Chronic pansinusitis Inhale 1 [place] into affected nostril(s) once daily. 16 g [...] 10/30/2023 4 Discontinued (Reorder (E-cancel not sent)) predniSONE (DELTASONE) 20 mg tabletIndications:A cute cough,Acute non-recurrent maxillary sinusitis Take 3 Tablets (60 mg) by mouth once daily with a meal for 2 days, THEN 2 Tablets (40 mg) once daily with a meal for 2 days, THEN 1 Tablet (20 mg) once daily with a meal for 2 days. 12 Tablet 11/20/2023 4 doxycycline monohydrate 100 mg capsuleIndications: Acute cough,Acute non-recurrent maxillary sinusitis Take 1 Capsule (100 mg) by mouth two times daily for 7 days. 14 Capsule 11/20/2023 4 Hospital, Clinic, or Other Facility Administered Medication [...] from 09/06/2021:Stage IA(cT1b, cN0(f), cM0, G1, ER+, DC+, HER2-) - Signed by William Marshall MD [...] Description 11/20/2023 9:10 AM CDT Office Visit [facility] [address] [place] [address] Nadya Wagner NP Cough 11/20/2023 Orders Only [facility] Scanner 1 scan: (1-Ord) [facility], 11/20/2023 11/20/2023 Travel 11/08/2023 8:00 AM CDT Telemedicine [facility] [place] [address] [facility] [address] [place] [phone] Reny Jeronimo, ASAD Telehealth (Follow up -- widespread pain, medication management) 11/08/2023 Travel 10/30/2023 Refill [facility] [address] [place] [address] Reny Jeronimo NP Refill Request 10/09/2023 Refill [facility] [address] [place] [phone] Reny Jeronimo NP Refill Request (Topiramate) 09/25/2023 3:50 PM CDT Office Visit [facility] [address] [place] [place] [address] Nadya Wagner NP Medication Management 09/25/2023 Travel 09/20/2023 Refill [facility] [address] [place] [address] Nadya Wagner NP Refill Request (Hydroxyzine Hcl) [...] of Communication with Friends and Fami ly 0 11/20/2023 Financial Resource Strain Answer Date R ecorded Difficulty of Paying Living Expenses 3 11/20/2023 Difficulty of Paying Living Expenses Not on file 11/20/2023 Food Insecurity Answer Date Recorded Worried About Running Out of Food in the Last Ye ar 1 11/20/2023 Transportation Needs Answer Date Record ed Lack of Transportation (Medical) 1 11/20/2023 Housing Stability Answer Date Recorded Unable to Pay for Housing in the Last Year 1 11/20/2023 Sex and Gender Information Value Date Recorded [...] T Respiratory Rate 14 03/20/2023 11:56 AM RAILROAD OPERATOR Oxygen Saturation 97% 11/20/2023 9:51 AM CDT Inhaled Oxygen Concentration - - Weight 69.9 kg (154 lb) 11/20/2023 9:20 AM CDT Height 154.9 cm (5' 1) 03/12/2023 1:08 PM RAILROAD OPERATOR Body Mass Index 29.1 03/12/2023 1:08 PM RAILROAD OPERATOR Plan of Treatment Health Maintenance Due Date [...] Additional history exists Tetanus booster 08/04/2031 08/03/2021, 11/06/2010, 01/12/2006 (Completed outside of [facility]) Colonoscopy through age 73 03/20/203303/20, 03/20/2023, 03/20/2023, Additional history exists Hepatitis C screening for age 18-79 Completed 12/03/2018 Tdap Completed 08/03/2021, 02/16/2011 HIV for age 15-65 Completed 10/12/2022 Pneumococcal series for age 6-64 Aged Out No longer eligible based on patient's age to complete this topic Procedures Procedure Name Priority Date/Time Associated Diagnosis Comments SCAN-ULTRASOUND REPORT 11/20/2023 12:00 AM CDT HEMOGLOBIN A1C SCREENING Routine 09/25/2023 4:19 PM CDT Prediabetes COMP METABOLIC PANEL Routine 09/25/2023 4:19 PM CDT Fibromyalgia Hypertriglyceridemia Prediabetes LIPID PANEL W REFLEX MEASURED LDL Routine 09/25/2023 4:19 PM CDT Hypertriglyceridemia COLONOSCOPY DIAGNOSTIC Routine 03/20/2023 9:47 AM RAILROAD OPERATOR Diarrhea, unspecified type LC HIV-1/O/2, 4TH GENERATION Routine 10/12/2022 1:56 PM CDT Encounter for screening for HIV XR MAMMO MACEY BILAT DIAG JAMILA 04/04/2022 12:00 AM RAILROAD OPERATOR Breast pain Acute mastitis of right breast Bilateral malignant neoplasm of breast in female, unspecified estrogen receptor status, unspecified site of breast (HC) MATH INTERVENTIONIST THIN PREP PAP SCREEN IMAGED Routine 08/27/2020 4:18 PM CDT ANTI HCV Routine 12/03/2018 3:06 PM CDT Need for hepatitis C screening test from Last 3 Months or Most Recently Relevant to Health Maintenance Results * SCAN-ULTRASOUND REPORT (11/20/2023 12:00 AM CDT) Anatomical Region Laterality Modality Other Scanner OTHER * HEMOGLOBIN A1C SCREENING (09/25/2023 4:19 PM CDT) HEMOGLOBIN A1C SCREENING 5.4 <=6.4 % 09/26/2023 9:25 AM CDT [facility] Blood BLOOD SPECIMEN / Unknown Venipuncture / Unknown 09/25/2023 4:19 PM CDT 09/25/2023 4:19 PM CDT Narrative [facility] - 09/26/2023 9:25 AM CDT ? (<5.7%) ?Normal ? (5.7% to 6.4%) ? Indicates prediabetes ? (>=6.5%) ? Confirms diabetes Falsely low levels may be seen with: Recent Transfusion, Recent Significant Blood Loss, Hemolytic Diseases, or Falsely elevated levels may be seen with: Untreated Anemias, Splenectomy Nadya Wagner NP CHEMISTRY Performing Organization Address City/[facility]/ZIP Co de Phone Number [facility] [address] [place] [id number], * (ABNORMAL) LIPID PANEL W REFLEX MEASURED LDL (09/25/2023 4:19 PM CDT) CHOLESTEROL,TOTAL 187 100 - 199 mg/dL 09/26/2023 2:17 AM CDT [facility] Comment: Cholesterol, Total Reference Ranges Desirable <200 mg/dL Borderline 200-239 mg/dL High >=240 mg/dL TRIGLYCERIDES 162(H) <150 mg/dL 09/26/2023 2:17 AM CDT [facility] HDL CHOLESTEROL 54 >40 mg/dL 2:17 AM CDT [facility] NON-HDL CHOLESTEROL 133 <145 mg/dl 09/26/2023 2:17 AM CDT [facility] CHOL/HDL RATIO 3.46 <4.50 09/26/2023 2:17 AM CDT [facility] LDL CHOLESTEROL 101 <=130 mg/dL 09/26/2023 2:17 AM CDT [facility] VLDL CHOLESTEROL 32(H) <=30 mg/dL 09/26/2023 2:17 AM CDT [facility] PROVIDER ORDERED STATUS RANDOM 09/26/2023 2:17 AM CDT [facility] Blood BLOOD SPECIMEN / Unknown Venipuncture / Unknown 09/25/2023 4:19 PM CDT 09/25/2023 4:19 PM CDT Nadya Wagner NP CHEMISTRY [facility] [address] [place] [id number], [place] * (ABNORMAL) COMP METABOLIC PANEL (09/25/2023 4:19 PM CDT) SODIUM 142 136 - 145 mmol/L 09/26/2023 2:17 AM CDT [facility] POTASSIUM 4.0 3.5 - 5.1 mmol/L 09/26/2023 2:17 AM T [facility] CHLORIDE 108(H) 98 - 107 mmol/L 09/26/2023 2:17 AM T [facility] CO2,TOTAL 25 22 - 29 mmol/L 09/26/2023 2:17 AM [facility] ANION GAP 9 5 - 18 09/26/2023 2:17 AM T [facility] GLUCOSE 94 70 - 99 mg/dL 09/26/2023 2:17 AM [facility] CALCIUM 9.2 8.8 - 10.2 mg/dL 09/26/2023 2:17 AM [facility] BUN 13 8 - 23 mg/dL 09/26/2023 2:17 AM [facility] CREATININE 0.82 0.50 - 0.90 mg/dL 09/26/2023 2:17 AM [facility] BUN/CREAT RATIO 16 10 - 20 2:17 AM [facility] eGFR 82(L) >90 mL/min/1.7 3m2 09/26/2023 2:17 AM [facility] Comment:As of 2021, eG FR is calculated by the CKD-EPI creatinine equation without race adjustment. ??eGFR can be influenced by muscle mass, exercise, and diet. ??The reported eGFR is an estimation only and is only applicable if the renal function is stable. ALBUMIN 4.5 4.0 - 4.9 g/dL 09/26/2023 2:17 AM T [facility] PROTEIN,TOTAL 6.7 6.0 - 8.0 g/dL 09/26/2023 2:17 AM T [facility] BILIRUBIN,TOTAL 0.2 0.0 - 1.2 mg/dL 09/26/2023 2:17 AM T [facility] ALK PHOSPHATASE 49 35 - 104 IU/L 09/26/2023 2:17 AM CDT [facility] ALT (SGPT) 11 10 - 35 IU/L 09/26/2023 2:17 AM CDT [facility] AST (SGOT) 23 10 - 35 IU/L 09/26/2023 2:17 AM CDT [facility] Blood BLOOD SPECIMEN / Unknown Venipuncture / Unknown 09/25/2023 4:19 PM CDT 09/25/2023 4:19 PM CDT Nadya Wagner NP CHEMISTRY [facility] [address] [place] [address], * COLONOSCOPY (03/20/2023 10:05 AM RAILROAD OPERATOR) 03/20/2023 10:0 5 AM RAILROAD OPERATOR Narrative Transcriptions Mike Alexandre MD - 03/20/2023 [...] candidate for conscious sedation. The endoscope [id number] was passed through the anus andadvanced to [...] 10:05 AM Procedure Code(s): --- Professional --- 89416, Colonoscopy, flexible; with removalof tumor(s), polyp(s), or other lesion(s) bysnare technique 28570, 59, Colonoscopy, flexible; withbiopsy, single or multiple Diagnosis Code(s): --- Professional --- D12.8, Benign neoplasm of rectum R19.7, Diarrhea, unspecified R93.3, Abnormal findings on diagnosticimaging of other parts of digestive tract CPT copyright 2021 [employer]. All rights reserved. The codes documented in this report are preliminary and upon educational/development assistant reviewmay be revised to meet current compliance requirements. Scope In: 11:16:30 AM Scope Withdrawal Time 0 hours 14 minutes 51 seconds Scope Out: 11:35:46 AM Mike Alexandre MD PROCEDURE ORD * LC HIV-1/O/2, 4TH GENERATION (10/12/2022 1:56 PM CDT) HIV Scr 4th Gen Non Reactive Non Reactive 10/15/2022 8:36 AM CDT [facility] Comment: HIV Negative HIV-1/HIV-2 antibodies and HIV-1 p24 antigen were NOT detected. There is no laboratory evidence of HIV infection. Blood BLOOD SPECIMEN / Unknown Venipuncture / Unknown 10/12/2022 1:56 PM CDT 10/12/2022 1:57 PM CDT Narrative [facility] - 10/15/2022 8:36 AM CDT Performed at: ??[address] ??[id number] [employer] Developer: Per Hawley MD, Phone: ??[phone] Nadya E Wagner MARKET SALES MANAGER LABORATORY [facility]) [address] [place] [address], [place] * XR MAMMO MACEY BILAT DIAG (04/04/2022 12:00 AM RAILROAD OPERATOR) Anatomical Region Laterality Modality BREASTS, Breast Left, Breast Right Bilateral Mammography Nadya Wagner MARKET SALES MANAGER MAMMO * MATH INTERVENTIONIST THIN PREP PAP SCREEN IMAGED (08/27/2020 4:18 PM CDT) Case Report Gynecologic Cytology Report ? Case: [id number] ? Authorizing Provider: ??Lesia Chase MD ? Collected: ? 08/27/2020 1618 ? Ordering Location: ? [facility] ?? Received: ?08/27/2020 1652 ? Clinic ? First Screen: ?Baccam, Minie ? Specimen: ?MATH INTERVENTIONIST ThinPrep Vial Screening, Cervical ? 09/09/2020 2:54 PM CDT [facility] INTERPRETATION/ RESULT NEGATIVE FOR INTRAEPITHELIAL LESION OR MALIGNANCY (NIL) (none) 09/09/2020 2:54 PM CDT [facility] IMEN ADEQUACY Satisfactory for evaluation No endocervical component seen 09/09/2020 2:54 PM CDT [facility] HPV REQUEST HPV if ASCUS 09/09/2020 2:54 PM CDT [facility] Date of LMP postmenopausal 2:54 PM CDT [facility] Last Pap Date 12/10/15 09/09/2020 2:54 PM CDT [facility] Last Pap Result NIL 2:54 PM CDT [facility] Abnormal Pap or [place] Bx in last 5 years No 09/09/2020 2:54 PM CDT [facility] Menstrual Status Postmenopausal 09/09/2020 2:54 PM CDT [facility] [place] Bx Done Today No 09/09/2020 2:54 PM CDT [facility] Additional Information None given 09/09/2020 2:54 PM CDT [facility] Comment: Cytology is screened at [facility] - [address], [place] [address] and [facility] - [address], [place] [address] and [facility] - [address] [place] [address] Interpreted at [facility] - [address], [place] [address] Automated Review Successful 09/09/2020 2:54 PM CDT [facility] Comment:Specimen processed s uccessfully by automated statistician applied device, ThinPrep Imaging System, [employer] Note The pap test is a [...] and malignant lesions. 09/09/2020 2:54 PM CDT [facility]ORATORY Other (Cervical) Non-Blood / Unknown 08/27/2020 4:18 PM CDT 08/27/2020 4:52 PM CDT Lesia Chase MD PATHOLOGY/[facility] [address] [place] [address], * ANTI HCV (12/03/2018 3:06 PM CDT) HEPATITIS C ANTIBODY Non-React dom Non-React dom 12/03/2018 8:27 PM CDT [facility] [employer] [facility] Comment:Antibodies to HCV no t detected; does not exclude the possibility of exposure to HCV. Blood BLOOD SPECIMEN / Unknown Venipuncture / Unknown 12/03/2018 3:06 PM CDT 12/03/2018 3:06 PM CDT Lesia Chase MD [facility] [address] [place] [address], from Last 3 Months or Most Recently Relevant to Health Maintenance Advance Directives * Full Code (Latest Code Status on File) Date Activated Date Inactivated Comments 03/12/2023 1:04 PM 03/12/2023 4:21 PM Question Answer Comments Code Status Discussion: Unable to Assess Preferences, Provider to review later Care Teams Lpn Rn Relationship Specialty [place] [address] [place] [address] PCP - General Nurse Practitioner 08/12/21 [place] [address] [place] [address] Surgery - Oncology 08/31/21 Reny Jeronimo NP [address] [place] [address] Pain Management Nurse Practitioner - Family 09/28/22
== END 2023-12-05 15:25 | disposition home or self-care (01) ==
LOC: RAD 15:25
PROVIDERS: PCP Nurse Practitioner Family; Visit Provider Physician Assistant
DX: M85.89 Other specified disorders of bone density and structure, multiple sites (principal); Z79.811 Long term (current) use of aromatase inhibitors
CPT/HCPCS: 77080

== ENCOUNTER 2024-02-16 21:32 | Emergency (ER) | payer OTHER, SELFPAY ==
[2024-02-16 21:45] VITALS: BP 148/68; PULSE 78; RESP 20; TEMP 36.7; O2SAT 99; BMI 29.3
--- NOTE | 2024-02-16 21:50 | ED_ITS ---
HPI - General Adult General Chief complaint: Chest Pain Stated complaint: chest pain Time Seen by Provider: 02/16/24 21:39 History of Present Illness HPI narrative: CC: Intermittent Chest Pain pt. intermittent chest pain since yesterday . denies n/v, diarrhea, fevers 58-year-old woman presenting to the emergency department with concern of a sort of chest pain beginning yesterday. Underlying history of invasive ductal breast carcinoma. She is taking anastrozole. No fever. No cough or cold symptoms. Intermittent fluttering over the last 24 hours or so and then just feels like it goes up her chest her esophagus. Says it is not like heartburn that she would be familiar with. She notes then suddenly just got really fatigued. 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 Related Data Home Medications ?Medication ?Instructions ?Recorded ?Confirmed fluticasone propionate 50 2 spray intranasal QDAY 12/28/21 02/16/24 mcg/actuation nasal spray,suspension (Flonase Allergy Relief) ibuprofen 600 mg tablet 600 mg PO Q8H PRN 12/28/21 02/16/24 pravastatin 40 mg tablet 40 mg PO QDAY 12/28/21 02/16/24 fluoxetine 20 mg capsule (Prozac) 20 mg PO QDAY 01/25/23 02/16/24 topiramate 100 mg capsule,extended 100 mg PO QDAY 01/25/23 02/16/24 release 24 hr topiramate 50 mg tablet 50 mg PO DIRECTED 02/16/24 02/16/24 Previous Rx's ?Medication ?Instructions ?Recorded anastrozole 1 mg tablet (Arimidex) 1 mg PO QDAY #90 tabs 05/28/23 Allergies Allergy/AdvReac Type Severity Reaction Status Date / Time No Known Drug Allergies Allergy Verified 02/16/24 21:48 Review of Systems Status of ROS: Reports: 6 or more systems reviewed and unremarkable except as noted in History and below [facility] Medical History Bronchitis ?J40 - Bronchitis, not specified as acute or chronic (ICD-10) Cough ?R05.9 - Cough, unspecified (ICD-10) Hyperlipidemia ?E78.5 - Hyperlipidemia, unspecified (ICD-10) History of migraine ?Z86.69 - Personal history of other diseases of the nervous system and sense organs (ICD-10) Herpes zoster ?B02.9 - Zoster without complications (ICD-10) Fibromyalgia ?M79.7 - Fibromyalgia (ICD-10) Depression ?F32.A - Depression, unspecified (ICD-10) Chronic insomnia ?F51.04 - Psychophysiologic insomnia (ICD-10) Anxiety ?F41.9 - Anxiety disorder, unspecified (ICD-10) Allergic rhinitis ?J30.9 - Allergic rhinitis, unspecified (ICD-10) Surgical History History of unilateral oophorectomy ?Z90.721 - Acquired absence of ovaries, unilateral (ICD-10) History of tubal ligation ?Z98.51 - Tubal ligation status (ICD-10) History of tonsillectomy and adenoidectomy ?Z90.89 - Acquired absence of other organs (ICD-10) History of sinus surgery ?Z98.890 - Other specified postprocedural states (ICD-10) History of cervical spinal arthrodesis (2006) ?Z98.1 - Arthrodesis status (ICD-10) History of 2 sections ?Z98.891 - History of uterine scar from previous surgery (ICD-10) S/P bilateral breast lumpectomy ?Z98.890 - Other specified postprocedural states (ICD-10) Social History Smoking Status: Former smoker Do you use any of these nicotine containing products: None Second hand tobacco smoke exposure: No How often do you have a drink containing alcohol: monthly or less How many standard drinks containing alcohol do you have on a typical day: 1 or 2 How often do you have six or more drinks on one occasion: Never AUDIT-C Alcohol total score: 1 Non-prescribed substance use: denies use service: No Exam Narrative: Exam Narrative: Very pleasant. NAD. Breathing easily. Lungs are clear. Neck is supple. No supraclavicular crepitus. Pain is not reliably reproducible to palpation over the chest wall. Abdomen is soft and nontender. Masses appreciated. Extremities are well perfused without edema. Const: Vital Signs, click to edit/add: Vital Signs - 24 hr 02/16/24 21:45 02/16/24 22:15 02/16/24 23:18 Temperature 98.1 F 98.1 F Pulse Rate [Right Pulse Oximeter] 78 74 Respiratory Rate 20 20 Blood Pressure [Ri ght Upper Arm] 148/68 H 135/78 Pulse Oximetry 99 99 99 Oxygen Delivery Me thod Room Air Room Air 02/16/24 23:19 Temperature 98.1 F Pulse Rate [Right Pulse Oximeter] 74 Respiratory Rate 20 Blood Pressure [Ri ght Upper Arm] 135/78 Pulse Oximetry Oxygen Delivery Me thod Documenting provider has reviewed patient's vital signs: yes Course Vital Signs Vital signs: Initial Vital Signs Temperature 98.1 F 02/16/24 21:45 Temperature Source Temporal Artery Scan 02/16/24 21:45 Pulse Rate 78 02/16/24 21:45 Pulse Rhythm Regular 02/16/24 21:45 Pulse Strength 3+ Normal 02/16/24 21:45 Respiratory Rate 20 02/16/24 21:45 Blood Pressure 148/68 H 02/16/24 21:45 Blood Pressure Mean 94 02/16/24 21:45 Blood Pressure Position Sitting 02/16/24 21:45 Pulse Oximetry 99 02/16/24 21:45 Oxygen Delivery Method Room Air 02/16/24 21:45 Vital Signs Temperature 98.1 F 02/16/24 21:45 Pulse Rate 78 02/16/24 21:45 Respiratory Rate 20 02/16/24 21:45 Blood Pressure 148/68 H 02/16/24 21:45 Pulse Oximetry 99 02/16/24 21:45 Oxygen Delivery Method Room Air 02/16/24 21:45 Temperature 98.1 F 02/16/24 23:19 Pulse Rate 74 02/16/24 23:19 Respiratory Rate 20 02/16/24 23:19 Blood Pressure 135/78 02/16/24 23:19 Pulse Oximetry 99 02/16/24 23:18 Oxygen Delivery Method Room Air 02/16/24 23:18 Medical Decision Making MDM Narrative Medical decision making narrative: Might be experiencing some PVCs or PACs; the latter may be more likely. Does not seem to be ischemic cardiovascular event but will screen for this as well. Runs of supraventricular tachycardia or atrial fibrillation? Does not seem to be consistent with pulmonary embolus or infectious etiology. Will check chest x-ray for pneumothorax or secondary signs of heart failure. Electrolyte abnormalities contributing to fatigue? Anemia? Monitor on nuclear monitoring technician for any evidence of arrhythmia. Labs are reassuring with normal hemoglobin and white count. No neutropenia. Looks to have good renal function and without evidence of heart failure or ischemic cardiovascular event. Chest x-ray reviewed by me looks abnormal cardiac silhouette. No pneumothorax. Normal mediastinum. No events during time of monitoring in the emergency department. Might benefit from longer-term cardiac monitoring. Can follow this up outpatient. See patient discharge plan for further discussion Medical Records Medical records reviewed: Yes I reviewed the patient's medical records Lab Data Lab results reviewed: Yes I reviewed the patient's lab results Labs: Lab Results 02/16/24 02/16/24 Range/Units 22:16 22:20 WBC 7.68 (4.50-11.00) K/uL RBC 4.45 (4.00-5.20) m/uL Hgb 12.6 (12.0-16.0) gm/dL Hct 39.6 (33.0-51.0) % MCV 89 (80-100) fL MCH 28 (26-34) pg MCHC 32 (32-36) gm/dL RDW Coeff of Kacey 12.9 (11.5-15.5) % Plt Count 233 (140-440) K/uL Neut % (Auto) 52.4 (42.0-72.0) % Lymph % (Auto) 30.6 (20-44) % Story % (Auto) 7.9 (0.0-11.0) % Eos % (Auto) 8.1 H (0.0-7.0) % Baso % (Auto) 0.9 (0.0-3.0) % Neut # (Auto) 4.02 (1.7-7.0) K/uL Lymph # (Auto) 2.35 (0.90-2.90) K/uL Story # (Auto) 0.60 (0.00-0.90) K/UL Eos # (Auto) 0.60 H (0.00-0.50) K/uL Baso # (Auto) 0.07 (0.00-0.30) K/uL Abs Immat Gran (auto) 0.01 (0.00-0.30) K/uL Imm/Tot Granulo (auto) 0.1 % Sodium 139 (135-149) mmol/L Potassium 3.6 (3.6-5.1) mmol/L Chloride 107 (96-114) mmol/L Carbon Dioxide 23 (20-32) mmol/L Anion Gap 9 (7-15) mEq/L BUN 17 (7-30) mg/dL Creatinine 0.8 (0.5-1.5) mg/dL Estimated Creat Clear 56.43 Estimated GFR 84 ml/min Glucose 107 (60-115) mg/dL Calcium 8.9 (8.4-10.6) mg/dL NT-Pro-B Natriuret Pep 81 pg/mL POC Troponin I 0.00 L (0.01-0.04) ng/ml ECG Data Attestation: I personally reviewed and interpreted this ECG as follows: (Normal sinus rhythm at 75) Discharge Plan Discharge Clinical Impression: Atypical chest pain, Palpitations Additional Instructions: If this keeps happening I would follow-up for re-evaluation. Might benefit from longer-term heart monitoring. Return for persistent and increased chest pain particularly associated with shortness of breath or nausea. Prescriptions: No Action fluticasone propionate [Flonase Allergy Relief] 50 mcg/actuation spray,suspension 2 spray intranasal QDAY Rx Instructions: administer into each nostril pravastatin 40 mg tablet 40 mg PO QDAY ibuprofen 600 mg tablet 600 mg PO Q8H PRN topiramate 100 mg capsule,extended release 24hr 100 mg PO QDAY fluoxetine [Prozac] 20 mg capsule 20 mg PO QDAY anastrozole [Arimidex] 1 mg tablet 1 mg PO QDAY Qty: 90 3RF topiramate 50 mg tablet 50 mg PO DIRECTED Patient Comments: PLEASE SEE ATTACHED FOR DETAILED DIRECTIONS Follow Up/Referrals: Nadya Wagner, REGULATORY ASSOCIATE, FLIGHT SOFTWARE TEST ENGINEER [Primary Care Provider] - Stand Alone Forms: [facility] Info Instructions
--- NOTE | 2024-02-16 22:04 | CRLHL7_ITS ---
For Patients: As a result of the Century Cures Act, medical imaging exams and procedure reports are released immediately into your electronic medical record. You may view this report before your referring provider. If you have questions, please contact your health care provider. INDICATION: Intermittent chest pain. TECHNIQUE: Chest 1 portable view. COMPARISON: None. FINDINGS: No pneumothorax or pleural effusion. Lungs are clear. Cardiac and mediastinal contours are within normal limits. Upper abdomen and osseous structures as imaged show no acute abnormality. IMPRESSION: No evidence of acute cardiopulmonary disease. Dictated by Wong Cabezas MD @ 02/16/2024 10:46:03 PM (Electronically Signed)
[2024-02-16 22:15] VITALS: O2SAT 99
[2024-02-16 22:40] LABS: Basophils Absolute Auto 0.07 K/uL (0.00-0.30); Basophils Percent Auto 0.9 % (0.0-3.0); Eosinophils Percent Auto 8.1 % (0.0-7.0); Hematocrit 39.6 % (33.0-51.0); Hemoglobin* 12.6 gm/dL (12.0-16.0); Immature Granulocytes Abs Auto 0.01 K/uL (0.00-0.30); Immature Granulocytes Pct Auto 0.1 %; Lymphocytes Absolute Auto 2.35 K/uL (0.90-2.90); Lymphocytes Percent Auto 30.6 % (20-44); Mean Corpuscular HGB Conc 32 gm/dL (32-36); Mean Corpuscular Hemoglobin 28 pg (26-34); Mean Corpuscular Volume 89 fL (80-100); Monocytes Percent Auto 7.9 % (0.0-11.0); Neutrophils Absolute Auto 4.02 K/uL (1.7-7.0); Neutrophils Percent Auto 52.4 % (42.0-72.0); Platelet Count* 233 K/uL (140-440); RDW Coefficient of Variation % 12.9 % (11.5-15.5); Red Blood Count 4.45 m/uL (4.00-5.20); White Blood Count* 7.68 K/uL (4.50-11.00)
[2024-02-16 22:47] LABS: Slide Review Reflex No
[2024-02-16 22:52] LABS: Chloride* 107 mmol/L (96-114); Potassium* 3.6 mmol/L (3.6-5.1); Sodium* 139 mmol/L (135-149)
--- OUTSIDE RECORDS SUMMARY | 2024-02-16 22:52 | XMS_ITS | Clinical Summary ---
Author Organization [facility] Address [address] [place] [id number] Care Team Providers Care Nutritional Yeast Supervisor Name Role Phone [facility] Primary Care Provider Allergies Active Allergy Reactions Criticality Noted Date Comments Diphenhydramine Hives,Itching,Rash Low 01/09/2019 Penicillin V 06/02/2002 Medications fluticasone (FLONASE) 50 MCG/ACT nasal spray Copen 1-2 sprays into both nostrils daily as [...] Date Unsteady gait 06/25/2012 Anxiety state 09/15/2002 Overview (01/14/2015): Problem list name updated by automated process. 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
--- OUTSIDE RECORDS SUMMARY | 2024-02-16 22:52 | XMS_ITS | Clinical Summary ---
Author Organization [facility] Address [place], [place] [address] Care Team Providers Care Drip Molder Name Role Phone Nadya Wagner CENTRIFUGE SEPARATOR OPERATOR Primary Care Provider [phone] William Marshall MD Unavailable [phone] Reny Jeronimo NP Unavailable [phone] Allergies Active Allergy Reactions Criticality Noted Date Comments Unlisted Allergen (Include Detail In Comments) Contact Dermatitis,Erythema 09/05/2021 Tegaderm- caused redness/blistering under dressing Medications Medication Sig Dispensed Refills Start Date End Date Status cetirizine (ZYRTEC) 10 mg tabletIndications:S easonal allergic rhinitis due to pollen Take 1 tablet by mouth once daily. 90 tablet 1 0 Active anastrozole (ARIMIDEX) 1 mg tablet Take 1 mg by mouth once daily. 2 Active ondansetron (ZOFRAN ODT) 4 mg disintegrating tabletIndications:N ausea Place 1 Tablet (4 mg) on the tongue every 8 hours if needed for Nausea/Vomiting . 10 Tablet 3 3 Active FLUoxetine (PROZAC) 20 mg capsuleIndications: Adjustment disorder with mixed anxiety and depressed mood Take 1 Capsule (20 mg) by mouth once daily in the morning. 90 Capsule 3 4 Active hydrOXYzine HCL (ATARAX) 25 mg tabletIndications:C hronic pain syndrome,Anxiety,Fi bromyalgia Take 1 Tablet (25 mg) by mouth at bedtime if needed for Anxiety. 180 Tablet 3 4 Active pravastatin (PRAVACHOL) 40 mg tabletIndications:H ypertriglyceridemia Take 1 Tablet (40 mg) by mouth at bedtime. 90 Tablet 3 4 Active valACYclovir (VALTREX) 500 mg tabletIndications:H /O cold sores Take 1 Tablet (500 mg) by mouth two times daily. 6 Tablet 3 4 Active topiramate (TOPAMAX) 50 mg tabletIndications:F ibromyalgia,Chronic pain syndrome Take 1 Tablet (50 mg) by mouth two times daily. Take along with 100 mg twice daily for total dose of 150 mg twice daily 60 Tablet 5 4 05/06/19 25 Active topiramate (Topamax) 100 mg tabletIndications:F ibromyalgia,Chronic pain syndrome Take 1 Tablet (100 mg) by mouth two times daily. Take along with 50 mg twice daily for total dose of 150 mg twice daily 60 Tablet 5 4 05/06/19 25 Active beclomethasone dipropionate (Qvar RediHaler) 80 mcg/actuation HFAb HFA inhalerIndications: Chronic cough Inhale 1 Puff by mouth two times daily. Doesn't need a spacer or shaking. 10.6 g 5 4 Active albuterol HFA (PRO-AIR; VENTOLIN; PROVENTIL) 90 mcg/actuation inhalerIndications: Acute cough Inhale 2 Puffs by mouth every 4 hours if needed for Shortness Of Breath or Wheezing. 18 g 4 Active NebulizerIndication s:Wheezing Nebulizer, disposable neb kit x 4, reuseable neb kit x 1, mask x 1, filters x 1. Frequency of use: daily; Medication: Albuterol and Duoneb Length of need: 99 months 4 Active albuterol-ipratropi um (DUONEB) (2.5-0.5 mg) in 3 mL NEBULIZATION solutionIndications :Wheezing Inhale 3 mL via a nebulizer every 6 hours if needed for Shortness Of Breath or Wheezing. 75 mL 1 4 Active albuterol 0.083% (2.5 mg/3 mL) neb solutionIndications :Wheezing Inhale 3 mL (2.5 mg) via a nebulizer every 4 hours if needed for Wheezing or Shortness Of Breath. 75 mL 1 4 Active codeine-guaiFENesin 10-100 mg/5 mL liquidIndications:A cute cough Take 5 mL by mouth every 6 hours if needed for Cough. 100 mL 4 Active fluticasone (50 mcg per actuation) nasal solution (FLONASE)Indication s:Acute non-recurrent maxillary sinusitis Inhale 1 Thrall into affected nostril(s) once daily. 16 g 4 Active omeprazole (PRILOSEC) 40 mg Delayed-Release capsuleIndications: Gastric reflux TAKE 1 CAPSULE (40 MG) BY MOUTH ONCE DAILY IF NEEDED FOR GI UPSET. 90 Capsule 1 4 Active omeprazole (PRILOSEC) 40 mg Delayed-Release capsuleIndications: Gastric reflux Take 1 Capsule (40 mg) by mouth once daily if needed for GI Upset. 30 Capsule 3 4 01/25/20 24 Discontinued Active Problems Problem Noted Date Diagnosed Date Gastritis 03/12/2023 Prediabetes 10/11/2022 Chronic pain syndrome 09/28/2022 Bilateral primary osteoarthritis of knee 023 Overview (07/08/2022): June 2022: only Left knee cortisone injection. Bilateral malignant neoplasm of breast in female, estrogen receptor positive 09/06/2021 Cancer Staging:Clinical stage from 09/06/2021:Stage IA(cT1b, cN0(f), cM0, G1, ER+, NC+, HER2-) - Signed by William Marshall MD on 09/06/2021 Elevated blood pressure read ing without diagnosis of hypertension 08/03/2021 Hyperopia of both eyes with astigmatism and pres byopia 02/11/2021 Routine adult health maintenance 04/04/2019 Overview (04/04/2019): Colonoscopy 03/2019 normal, repeat in 10 years Obesity, unspecified 04/24/2012 Hypertriglyceridemia 02/16/2011 Impaired fasting glucose 02/16/2011 Sinus polyp 01/19/2010 Viral warts, unspecified 01/12/2009 Major depressive disorder, recurrent episode, un specified 05/22/2007 Overview (05/22/2007): hospitalized x 3 Pain in joint, shoulder region 10/03/2006 Anxiety state, unspecified 04/06/2006 Dysthymic disorder 10/27/2005 Other chronic sinusitis 09/21/2005 RHINITIS - ALLERGIC 10/04/2004 Fibromyalgia Resolved Problems Problem Noted Date Diagnosed Date Resolved Date Bipolar I disorder, most rec ent episode (or current) manic, in full remission 05/22/20072007 Overview (05/22/2007): hospitalized x 3 SINUSITIS - ACUTE 10/04/2004 09/21/2005 Depressive disorder, not elsewhere classified 08/25/19 04 10/03/2006 Encounters Date Type Department Care Team Description 01/24/2024 Refill [facility] [address] [place] [address] Nadya Wagner, CENTRIFUGE SEPARATOR OPERATOR Refill Request (Omeprazole) 01/15/2024 Refill [facility] [address] [place] [address] Nadya Wagner NP Refill Request (fluticasone (50 mcg per actuation) nasal solution (FLONASE) Inhale 1 Thrall into affected nostril(s) once daily.//) 01/11/2024 Refill [facility] [address] [place] [address] Nadya Wagner NP Refill Request (Fluticasone) 12/13/2023 2:55 PM CDT Ancillary Procedure [facility] [place] [address] [place] [address] 12/13/2023 2:35 PM CDT Office Visit [facility] [place] [address] [place] [address] Nadya Wagner NP Follow Up (Recheck lungs) 12/13/2023 Travel 12/05/2023 Orders Only [facility] Scanner 1 scan: (1-Ord) [facility], [facility], 12/05/2023 11/20/2023 9:10 AM CDT Office [place] [facility] [address] [place], [place] [id number] Nadya Wagner NP Cough 11/20/2023 Orders Only [facility] Scanner 1 scan: (1-Ord) [facility], 11/20/2023 11/20/2023 Travel from Last 3 Months Immunizations Name Administration [...] 0 09/25/2023 Social Connections Answer Date Recorded Do you often feel lonely or isolated from those around you? 0 11/20/2023 Financial Resource Strain Answer Date R ecorded Difficulty of Paying Living Expenses 3 11/20/2023 Difficulty of Paying Living Expenses Not on file 11/20/2023 Food Insecurity Answer Date Recorded Do you worry your food will run out before you are able to buy more? 1 11/20/2023 Transportation Needs Answer Date Record ed Does lack of transportation keep you from medica l appointments? 1 11/20/2023 Does lack of transportation keep you from work, meetings or getting things that you need? 1 11/20/2023 Housing Stability Answer Date Recorded What is your housing situation today? 1 11/20/2023 Sex and Gender Information Value [...] Sign Reading Time Taken Comments Blood Pressure 112/60 12/13/2023 2:41 PM CDT Pulse 86 12/13/2023 2:41 PM CDT Temperature 36.8 ??C (98.2 ??F) 12/13/2023 2:41 PM CD T Respiratory Rate 14 03/20/2023 11:56 AM CASEWORKER Oxygen Saturation 96% 12/13/2023 2:41 PM CDT Inhaled Oxygen Concentration - - Weight 69.4 kg (153 lb 1.6 oz) 12/13/2023 2:41 P M CDT Height 154.9 cm (5' 1) 03/12/2023 1:08 PM CASEWORKER Body Mass Index 28.93 03/12/2023 1:08 PM CASEWORKER Plan of Treatment Health Maintenance Due Date [...] Additional history exists Tetanus booster 08/04/2031 08/03/2021, 1106/2010, 01/12/2006 [facility] Colonoscopy through age 75 03/20/203303/20, 03/20/2023, 03/20/2023, Additional history exists Hepatitis C screening for age 18-79 Completed 12/03/2018 Tdap Completed 08/03/2021, 02/16/2011 HIV for age 15-65 Completed 10/12/2022 Pneumococcal series for age 6-64 Aged Out No longer eligible based on patient's age to complete this topic Procedures Procedure Name Priority Date/Time Associated Diagnosis Comments XR CHEST 2 VIEWS PA AND LATERAL Routine 12/13/2023 3:04 PM CDT Acute cough SCAN-BONE DENSITOMETRY DEXA 12/05/2023 12:00 AM CDT SCAN-ULTRASOUND REPORT 11/20/2023 12:00 AM CDT LIPID PANEL W REFLEX MEASURED LDL Routine 09/25/2023 4:19 PM CDT Hypertriglyceridemi a COLONOSCOPY DIAGNOSTIC Routine 03/20/2023 9:47 AM CASEWORKER Diarrhea, unspecified type LC HIV-1/O/2, 4TH GENERATION Routine 10/12/2022 1:56 PM CDT Encounter for screening for HIV XR MAMMO MACEY BILAT DIAG JAMILA 04/04/2022 12:00 AM CASEWORKER Breast pain Acute mastitis of right breast Bilateral malignant neoplasm of breast in female, unspecified estrogen receptor status, unspecified site of breast (HC) COUNTER SERVER THIN PREP PAP SCREEN IMAGED Routine 08/27/2020 4:18 PM CDT ANTI HCV Routine 12/03/2018 3:06 PM CDT Need for hepatitis C screening test from Last 3 Months or Most Recently Relevant to Health Maintenance Results * XR CHEST 2 VIEWS PA AND LATERAL (12/13/2023 3:04 PM CDT) Anatomical Region Laterality Modality CHEST, THORAX, Lung, HEART Compu danielle Radiography 12/18/2023 6:02 AM CDT Impressions 12/18/2023 6:02 AM CDT No acute findings. Dictated by Anton Majano MD @ 12/18/2023 6:02:08 AM (Electronically Signed) Narrative 12/18/2023 6:02 AM CDT For Patients: ??As a result of the Cures Act, medical imaging exams and procedure reports are released immediately into your electronic medical record. ??You may view this report before your referring provider. ??If you have questions, please contact your health care provider. INDICATION: Acute cough TECHNIQUE: Chest 2 views COMPARISON: 01/24/2019 FINDINGS: Cardiovascular and mediastinum: ??Calcified left hilar lymph nodes again noted. Cardiac silhouette nonenlarged. Lungs and pleural spaces: ??Lungs are clear. ??No sign of infiltrate or mass. ??No sign of pleural effusion. ??No pneumothorax. ?? Bones and soft tissues: ??No significant findings. Procedure Note Anton Majano MD - 12/18/2023 For Patients: As a result of the Cures Act, medical imagingexams and procedure reports are released immediately into your electronicmedical record. You may view this report before your referring provider.If you have questions, please contact your health care provider. INDICATION: Acute cough TECHNIQUE: Chest 2 views COMPARISON: 01/24/2019 FINDINGS: Cardiovascular and mediastinum: Calcified left hilar lymph nodes againnoted. Cardiac silhouette nonenlarged. Lungs and pleural spaces: Lungs are clear. No sign of infiltrate ormass. No sign of pleural effusion. No pneumothorax. Bones and soft tissues: No significant findings. IMPRESSION: No acute findings. Dictated by Anton Majano MD @ 12/18/2023 6:02:08 AM (Electronically Signed) Nadya E Wagner CENTRIFUGE SEPARATOR OPERATOR GENERAL IMAGING * SCAN-BONE DENSITOMETRY DEXA (12/05/2023 12:00 AM CDT) Anatomical Region Laterality Modality Other Scanner OTHER * SCAN-ULTRASOUND REPORT (11/20/2023 12:00 AM CDT) Anatomical Region Laterality Modality Other Scanner OTHER * (ABNORMAL) LIPID PANEL W REFLEX MEASURED LDL (09/25/2023 4:19 PM CDT) CHOLESTEROL,TOTAL 187 100 - 199 mg/dL 09/26/2023 2:17 AM CDT [facility] [employer] Comment: Cholesterol, Total Reference Ranges Desirable <200 mg/dL Borderline 200-239 mg/dL High >=240 mg/dL TRIGLYCERIDES 162(H) <150 mg/dL 09/26/2023 2:17 AM CDT [facility] [email or web address] LABORATORY-[facility] HDL CHOLESTEROL 54 >40 mg/dL 2:17 AM CDT [facility] NON-HDL CHOLESTEROL 133 <145 mg/dl 09/26/2023 2:17 AM CDT [facility] CHOL/HDL RATIO 3.46 <4.50 09/26/2023 2:17 AM CDT [facility] LDL CHOLESTEROL 101 <=130 mg/dL 09/26/2023 2:17 AM CDT [facility] VLDL CHOLESTEROL 32(H) <=30 mg/dL 09/26/2023 2:17 AM CDT [facility] PROVIDER ORDERED STATUS RANDOM 09/26/2023 2:17 AM CDT [facility] Blood BLOOD SPECIMEN / Unknown Venipuncture / Unknown 09/25/2023 4:19 PM CDT 09/25/2023 4:19 PM CDT Nadya Wagner NP CHEMISTRY [facility] [address] [place] [address], * COLONOSCOPY (03/20/2023 10:05 AM CASEWORKER) 03/20/2023 10:0 5 AM CASEWORKER Narrative Transcriptions Mike Alexandre MD - 03/20/2023 [...] candidate for conscious sedation. The endoscope [id number]-[id number] was passed through the anus andadvanced to [...] 10:05 AM Procedure Code(s): --- Professional --- 91349, Colonoscopy, flexible; with removalof tumor(s), polyp(s), or other lesion(s) bysnare technique 45078, 59, Colonoscopy, flexible; withbiopsy, single or multiple Diagnosis Code(s): --- Professional --- D12.8, Benign neoplasm of rectum R19.7, Diarrhea, unspecified R93.3, Abnormal findings on diagnosticimaging of other parts of digestive tract CPT copyright 2021 [employer]. All rights reserved. The codes documented in this report are preliminary and upon outpatient coder reviewmay be revised to meet current compliance requirements. Scope In: 11:16:30 AM Scope Withdrawal Time 0 hours 14 minutes 51 seconds Scope Out: 11:35:46 AM Mike Alexandre MD PROCEDURE ORD * LC HIV-1/O/2, 4TH GENERATION (10/12/2022 1:56 PM CDT) HIV Scr 4th Gen Non Reactive Non Reactive 10/15/2022 8:36 AM CDT [facility] ([facility]) Comment: HIV Negative HIV-1/HIV-2 antibodies and HIV-1 p24 antigen were NOT detected. There is no laboratory evidence of HIV infection. Blood BLOOD SPECIMEN / Unknown Venipuncture / Unknown 10/12/2022 1:56 PM CDT 10/12/2022 1:57 PM CDT Narrative [facility] ([facility]) - 10/15/2022 8:36 AM CDT Performed at: ??[address] ??[id number] Youth Services Specialist: Per Hawley MD, Phone: ??[phone] Nadya Wagner NP LABORATORY [facility] ([facility]) [address] [place] [address], * XR MAMMO MACEY BILAT DIAG (04/04/2022 12:00 AM CASEWORKER) Anatomical Region Laterality Modality BREASTS, Breast Left, Breast Right Bilateral Mammography Nadya Wagner NP MAMMO * COUNTER SERVER THIN PREP PAP SCREEN IMAGED (08/27/2020 4:18 PM CDT) Case Report Gynecologic Cytology Report ? Case: [id number] ? Authorizing Provider: ??Lesia Chase MD ? Collected: ? 08/27/2020 1618 ? Ordering Location: ? [facility] ?? Received: ?08/27/2020 1652 ? Clinic ? First Screen: ?Ugo Aguirre ? Specimen: ?COUNTER SERVER ThinPrep Vial Screening, Cervical ? 09/09/2020 2:54 PM CDT [facility] INTERPRETATION/ RESULT NEGATIVE FOR INTRAEPITHELIAL LESION OR MALIGNANCY (NIL) (none) 09/09/2020 2:54 PM CDT [facility]AL LABORATORY IMEN ADEQUACY Satisfactory for evaluation No endocervical component seen 09/09/2020 2:54 PM CDT [facility] HPV REQUEST HPV if ASCUS 09/09/2020 2:54 PM CDT [facility]AL LABORATORY Date of LMP postmenopausal 2:54 PM CDT [facility] Last Pap Date 12/10/15 09/09/2020 2:54 PM CDT [facility] Last Pap Result NIL 2:54 PM CDT [facility] Abnormal Pap or [place] Bx in last 5 years No 09/09/2020 2:54 PM CDT [facility] Menstrual Status Postmenopausal 09/09/2020 2:54 PM CDT [facility] [place] Bx Done Today No 09/09/2020 2:54 PM CDT [facility] Additional Information None given 09/09/2020 2:54 PM CDT [facility] Comment: Cytology is screened at [facility] - [address], [place] [address] and [facility] - [address], [place] [address] and [facility] - [address] [place] [address] Interpreted at [facility] - [address], [place] [address] Automated Review Successful 09/09/2020 2:54 PM CDT [facility] Comment:Specimen processed s uccessfully by automated business strategy manager device, ThinPrep Imaging System, [employer] Note The pap test is a [...] and malignant lesions. 09/09/2020 2:54 PM CDT [facility] Other (Cervical) Non-Blood / Unknown 08/27/2020 4:18 PM CDT 08/27/2020 4:52 PM CDT Lesia Chase MD PATHOLOGY/CYTOLOGY [facility] [address] [place] [address], [place] * ANTI HCV (12/03/2018 3:06 PM CDT) HEPATITIS C ANTIBODY Non-React dom Non-React dom 12/03/2018 8:27 PM CDT [facility]-TRU TRAL LABORATORY Comment:Antibodies to HCV no t detected; does not exclude the possibility of exposure to HCV. Blood BLOOD SPECIMEN / Unknown Venipuncture / Unknown 12/03/2018 3:06 PM CDT 12/03/2018 3:06 PM CDT Lesia Chase MD SEND OUTS [facility] [address] [place] [address], from Last 3 Months or Most Recently Relevant to Health Maintenance Advance Directives * Full Code (Latest Code Status on File) Date Activated Date Inactivated Comments 03/12/2023 1:04 PM 03/12/2023 4:21 PM Question Answer Comments Code Status Discussion: Unable to Assess Preferences, Provider to review later Care Teams Drip Molder Relationship Specialty [place] [address] [place] [address] PCP - General Nurse Practitioner 08/12/21 [place] [address] [place] [address] Surgery - Oncology 08/31/21 Reny Jeronimo NP [address] [place] [address] Pain Management Nurse Practitioner - Family 09/28/22
--- OUTSIDE RECORDS SUMMARY | 2024-02-16 22:52 | XMS_ITS | Referral Summary ---
Author Organization [place] Address [address] [place] [address] Care Team Providers Care Automobile Body Customizer Name Role Phone Clinic, [facility] Primary Care Provider Allergies Active Allergy Reactions Criticality Noted Date Comments Diphenhydramine Hives,Itching,Rash Low 01/09/2019 Penicillin V 06/02/2002 Medications fluticasone (FLONASE) 50 MCG/ACT nasal spray [place] 1-2 sprays into both nostrils daily as [...] Getting School Help Needed Not on file 10/08 /2023 Comments No Sex and Gender Information Value Date Recorded Sex Assigned at Not on file Legal Sex Female 4:05 AM FELT HAT INSPECTOR AND PACKER Gender Identity Not on file Sexual Orientation [...] Plan of Treatment Not on file Insurance [facility] Advance Directives For more information, please contact: [phone] * Full Code (Latest Code Status on File) Date Activated Date Inactivated Comments 06/26/2012 12:05 PM 01/09/2019 1:29 PM * Full Code Date Activated Date Inactivated Comments 06/25/2012 4:57 PM 06/26/2012 12:05 PM Care Teams Automobile Body Customizer Relationship Specialty Start Date End Date Clinic, [facility] [address] [place] [address] PCP - General 01/09/19
--- OUTSIDE RECORDS SUMMARY | 2024-02-16 22:53 | XMS_ITS | Data Portability ---
Author Organization [facility], [facility] Address [address] [place] [address] Care Team Providers Care Screen Making Supervisor Name Role Phone ADAM BERGERON Primary Care Provider Assessment No assessment recorded. Plan of Treatment Reminders Order Date Submit Date Provider Last Modified By Organization Details Last Modified Time Details Appointments None recorded. Lab urinalysis , dipstick 2022 023 [email or web address] [facility], [address], [place], [address], 3 11:37:45 culture, urine 2022 023 [facility], [address], [place], [address], 3 12:17:25 Referral None recorded. Procedures None recorded. Surgeries None recorded. Imaging None recorded. Medication Orders Myrbetriq 50 mg tablet,ext ended release 2022 023 [email or web address] [id number], [address], [place], [address], 3 23:49:04 Patient TargetsNo targets recorded. Patient InstructionsNo instructions recorded. Reason for Referral None Reported. Results Created Date Observation Date Name Description Value Unit Range Abnormal Flag Note LastModifiedBy Organization Detail LastModifiedTime 02/22/2002/21/2023 urina lysis , dipst ick Color-Status Yellow Not Available [facility] [address], [place], [address], 02/21/2023 11:21:17 02/22/20 23 02/21/2023 urina lysis , dipst ick Clarity-Stat us Clear Not Available [facility] [address], [place], [address], 02/21/2023 11:21:17 02/22/20 23 02/21/2023 urina lysis , dipst ick Nitrates-Sta tus negati ve Not Available [facility] [address], [place], [address], 02/21/2023 11:21:17 02/22/20 23 02/21/2023 urina lysis , dipst ick Blood-Status Not Available [facility] [address], [place], [address], 02/21/2023 11:21:17 02/22/20 23 02/21/2023 urina lysis , dipst ick Leuko-Status Trace Not Available [facility] [address], [place], [address], 02/21/2023 11:21:17 Result Notes None recorded. Procedures Surgical History Date Name Laterality Status Provider Name and Address Organization Details Recorded Time 02/22/20 Bladder Scan completed Diamond Martin [facility] 02/21/2023 11:22:41 section completed ABI PRASAD [address], [address], [facility] 02/21/2023 11:12:29 oophorectomy completed ABI PRASAD [address], [address], [facility] 02/21/2023 11:13:30 Remove tonsils and adenoids completed ABI PRASAD [address], [address], [facility] 02/21/2023 11:13:39 primary fusion of cervical spine completed ABI PRASAD [facility] [address] [place] [address],[address] [place] [address], [address], [facility] 02/21/2023 11:14:27 lumpectomy of breast completed ABI PRASAD [facility] [address] [place] [address],[facility] [address], [place], [address], [facility] 02/21/2023 11:14:57 Imaging Results None recorded. Procedure Notes None recorded. Medical Equipment None Reported. Allergies No known drug allergies Medications Name Sig Start Date Stop Date Status Note LastModified by Organization Details LastModified Time cyclobenzap rine 10 mg tablet TAKE ONE TABLET BY MOUTH THREE TIMES A DAY IF NEEDED FOR MUSCLE SPASM 02/21 completed Not Available Not Available Not Available dicloxacill in 500 mg capsule TAKE ONE CAPSULE BY MOUTH FOUR TIMES A DAY BEFORE MEALS AND AT BEDTIME FOR 10 DAYS 02/21 completed Not Available Not Available Not Available anastrozole 1 mg tablet TAKE ONE TABLET BY MOUTH EVERY DAY active Not Available Not Available No t Available doxycycline hyclate 100 mg capsule TAKE ONE CAPSULE BY MOUTH TWICE A DAY FOR 7 DAYS 02/21 completed Not Available Not Available Not Available amitriptyli ne 150 mg tablet TAKE ONE TABLET BY MOUTH AT BEDTIME 02/21 completed Not Available Not Available Not Available pravastatin 40 mg tablet TAKE ONE TABLET BY MOUTH EVERY DAY AT BEDTIME active Not Available Not Available No t Available prednisone 20 mg tablet TAKE 3 TABLETS ONCE DAILY WITH A MEAL FOR 2 DAYS, THEN TAKE 2 TABLETS DAILY FOR 2 DAYS, THEN TAKE 1 TABLET DAILY FOR 2 DAYS. 02/21 completed Not Available Not Available Not Available metronidazo le 500 mg tablet TAKE ONE TABLET BY MOUTH THREE TIMES DAILY 02/21 completed Not Available Not Available Not Available prochlorper azine maleate 10 mg tablet TAKE ONE TABLET BY MOUTH EVERY 8 HOURS NEEDED active Not Available Not Available No t Available valacyclovi r 500 mg tablet TAKE ONE TABLET BY MOUTH TWICE A DAY active Not Available Not Available No t Available ciprofloxac in 500 mg tablet TAKE ONE TABLET BY MOUTH TWICE DAILY 02/21 completed Not Available Not Available Not Available amitriptyli ne 25 mg tablet TAPER DOSE DIRECTED TAKE 5 TABLETS DAILY FOR 14 DAYS, THEN 4 TABLETS DAILY FOR 14 DAYS, THEN 3 TABLETS DAILY FOR 14 DAYS, THEN 2 TABLETS 02/21 completed Not Available Not Available Not Available benzonatate 100 mg capsule TAKE ONE CAPSULE BY MOUTH THREE TIMES A DAY NEEDED FOR COUGH 02/21 completed Not Available Not Available Not Available hydroxyzine HCl 25 mg tablet TAKE ONE TO TWO TABLETS BY MOUTH AT BEDTIME active Not Available Not Available No t Available codeine 10 mg-guaifene sin 100 mg/5 mL oral liquid TAKE 5-10 ML BY MOUTH EVERY 4 HOURS NEEDED FOR COUGH, MAX OF 6 ML IN 24 HOURS 02/21 completed Not Available Not Available Not Available gabapentin 100 mg capsule TAKE 1-2 CAPSULES BY MOUTH THREE TIMES A DAY IF NEEDED (NERVE PAIN) 02/21 completed Not Available Not Available Not Available ondansetron 4 mg disintegrat ing tablet active Not Available Not Available N ot Available topiramate 100 mg tablet TAKE ONE TABLET BY MOUTH TWICE A DAY. TAKE ALONG WITH 50MG TABLET FOR TOTAL 150MG TWICE DAILY active Not Available Not Available No t Available fluoxetine 20 mg capsule TAKE ONE CAPSULE BY MOUTH EVERY MORNING active Not Available Not Available No t Available amoxicillin 875 mg-potassiu m clavulanate 125 mg tablet TAKE ONE TABLET BY MOUTH TWICE A DAY 02/21 completed Not Available Not Available Not Available topiramate 50 mg tablet TAKE ONE TABLET BY MOUTH TWICE A DAY WITH 100 MG TABLET active Not Available Not Available No t Available diclofenac 1 % topical gel APPLY 2 GM TOPICALLY TO THE AFFECTED AREA(S) FOUR TIMES A DAY active Not Available Not Available No t Available Myrbetriq 50 mg tablet,exte nded release Take 1 tablet every day by oral route. 2022 active Not Available Not Available Not Avai lable Qvar RediHaler 80 mcg/actuati on HFA breath activated aerosol INHALE ONE PUFF BY MOUTH TWICE A DAY active Not Available Not Available No t Available Vitals Date Recorded Body height Body mass index (BMI) Body weight Provider Name and Address Organization Details Last Updated DateTime 02/21/2023 154.94 cm 29.5 kg/m2 28998.41 g ABI PRASAD, [facility] [address] [address], [place], [address] [place] [address] U[facility] 02/21/2023 11:07:32 Social History Question Answer Notes LastModified by Organizat ion Details LastModified Time Tobacco Smoking Status Former Smoker ABI PRASAD [address], [address], [facility] 02/21/2023 11:12:12 What Is Your Level Of Alcohol Consumption? Occasional Information not available 02/21/2023 When Did You Quit Smoking? 6-10yearssincel astcigarette Information not available 02/21/2023 What Was The Date Of Your Most Recent Tobacco Screening? 02/21/2023 Information not available 02/21/2023 Sex: Unknown Functional Status None recorded. Mental Status None recorded. Family History Relationship Description Onset Age of this Age Resolved Age Notes LastModified by Organization Details LastModified Time Mother Family history of neoplasm of lung Not available 2022 11:11:27 Father Family history of neoplasm of brain Not available 2022 11:11:49 Medical History No medical history recorded. Gynecological HistoryNo gynecological history recorded. Obstetrics History GPAL:G 0 P 0 0 0 0 Immunizations Vaccine Type Date Status Provider Name and Address Organization Details Recorded Time zoster recombinant 08/03/2021 completed ABI ROSASamia PRASAD [address], [address], [facility] 02/21/2023 11:07:38 Tdap 08/03/2021 completed ABI REENASamia PRASAD [address], [address], [facility] 02/21/2023 11:07:39 Tdap 02/16/2011 completed ABI PRASAD [address], [address] [place] [address], [facility] 02/21/2023 11:07:39 Influenza, split virus, trivalent, preservative 03/01/2012 completed ABI PRASAD [address], [address], [facility] 02/21/2023 11:07:39 Influenza, split virus, trivalent, PF 02/16/2011 completed ABI PRASAD [facility] [address] [place] [address],[facility] [address], [place], [address], [facility] 02/21/2023 11:07:39 Influenza, split virus, quadrivalent, PF 03/18/2018 completed ABI ROSASamia PRASAD [address], [place], [address], [facility] 02/21/2023 11:07:39 Past Encounters Encounter ID Performer Location Encounter Start Date Encounter Closed Date Diagnosis/Indication Diagnosis SNOMED-CT Code Diagnosis ICD10 Code [id number] Satinder Rodriguez MD [facility] [address] [address] 02/21/2023 10:51:02 03/05/2023 14:40:04 Urgent desire to urinate 08001159 R39.15 Health Concerns Section Related Observation LastModified by Organization Detai ls LastModified Time None Recorded Concern Status LastModified by Organization Details LastModified Time None Recorded Advance Directives Directive None Recorded Payers Encounter Date Sequence Insurance Name Policy Number Policy Reaves Covered Member ID Reaves Member ID Guarantor Name 02/21/2023 1 [employer] Manasa Rahel Mejia [id number] Manasa Mejia Notes Date Note Type Note Provider Name and Address Organization Details Recorded Time 02/21/2023 text/html HPI Notes: 57 yo female with history of Bilateral breast cancer (invasive ductal), obesity, anxiety, chronic pain, and hyperlipidemia - presents for urinary frequency / urgency and bladder wall thickening. CT scan (01/12/23) revealed diffuse bladder wall thickening (was performed for evaluation of diarrhea). She reports urinary frequency / urgency for the past 6 months. She voids every 30 minutes to 2 hours during the day and 1x/night. She denies hesitancy, weak stream, or dysuria. She denies UTIs. She has occasional leakage with urgency and with sneeze / cough (uses 1 liner per day). - UA - no blood - trace LE - PVR = [address] scan (01/12/23) - no stones or hydronephrosis - diffuse bladder wall thickening Satinder Rodriguez MD [address] [address], [place], [address], [facility] 02/22/2023 23:51:43 OBGyn Episode No OBEpisode recorded.
[2024-02-16 22:54] LABS: Creatinine* 0.8 mg/dL (0.5-1.5); Est. Creatinine Clearance* 56.43; Estimated Glomerular Filt Rate 84 ml/min
[2024-02-16 22:55] LABS: Anion Gap 9 mEq/L (7-15); Blood Urea Nitrogen* 17 mg/dL (7-30); Calcium* 8.9 mg/dL (8.4-10.6); Carbon Dioxide* 23 mmol/L (20-32); Glucose* 107 mg/dL (60-115)
[2024-02-16 23:04] LABS: NT Pro B Type NatriureticPept* 81 pg/mL
[2024-02-16 23:18] VITALS: BP 135/78; PULSE 74; RESP 20; TEMP 36.7; O2SAT 99
[2024-02-16 23:19] VITALS: BP 135/78; PULSE 74; RESP 20; TEMP 36.7
== END 2024-02-16 23:19 | disposition home or self-care (01) ==
PROVIDERS: Emergency Provider Family Medicine; PCP Nurse Practitioner Family
DX: R07.89 Other chest pain (principal); R00.2 Palpitations
CPT/HCPCS: 36415; 71045; 80048; 83880; 84484; 85025; 93005; 94761; 99284; 99285

== ENCOUNTER 2024-06-06 13:00 | Outpatient (RCR) | payer OTHER, SELFPAY ==
--- NOTE | 2024-05-13 10:18 | URNOTE ---
Request received for authorization for [employer] ([id number]). Prior Authorization is not required by [facility] per site authorization tool.
--- NOTE | 2024-06-06 14:28 | ONC.NURNOTE ---
Called pt after missing her 1:00 PM Zometa infusion appointment. Left a message inviting pt to call back to re-schedule. Put her orders on hold.
--- NOTE | 2024-07-10 13:35 | ONC.NURNOTE ---
Patient called to state that she is out of Anastrozole and requests refill be sent to [facility] on [address]. When patient was here on 05/12/2024, her medication was refilled but sent to -[facility]. Rx was transferred to [facility] per patient request.
== END 2024-11-08 23:59 | disposition home or self-care (01) ==
LOC: CCIC 13:00
PROVIDERS: PCP Nurse Practitioner Family; Referring Provider Nurse Practitioner Family; Visit Provider Physician Assistant
DX: C50.911 Malignant neoplasm of unspecified site of right female breast (principal); C50.912 Malignant neoplasm of unspecified site of left female breast; Z17.0 Estrogen receptor positive status [ER+]
CPT/HCPCS: 99214; G0463

== ENCOUNTER 2024-11-20 09:25 | Outpatient (CLI) | payer OTHER, SELFPAY ==
--- NOTE | 2024-11-20 09:45 | CRLHL7_ITS ---
For Patients: As a result of the Century Cures Act, medical imaging exams and procedure reports are released immediately into your electronic medical record. You may view this report before your referring provider. If you have questions, please contact your health care provider. DIGITAL DIAGNOSTIC BILATERAL MAMMOGRAM USING TOMOSYNTHESIS AND COMPUTER-AIDED DETECTION RIGHT BREAST ULTRASOUND CLINICAL HISTORY: RIGHT breast lump. COMPARISON: 11/20/2023, 04/04/2022, 08/29/2021. TECHNIQUE: Digital BILATERAL mammogram in four projections with computer-aided detection. Tomosynthesis was used in this interpretation. Real-time ultrasound imaging of RIGHT breast with imaging documentation. BREAST COMPOSITION: The breasts are heterogeneously dense, which may obscure small masses. FINDINGS: 3D CC/MLO BILATERAL mammogram images submitted. Postlumpectomy changes are present bilaterally. Breast parenchyma is unchanged compared to prior studies. Targeted RIGHT breast ultrasound performed in the area of concern at 7 o`clock 5 cm from the nipple. In this location, there is a nonvascular isoechoic ovoid structure which measures 3.0 x 1.7 x 3.0 cm. IMPRESSION: Benign lipoma RIGHT breast 7 o`clock 5 cm from the nipple measuring 3.0 x 1.7 x 3.0 cm. No evidence of malignancy. RECOMMENDATIONS: Clinical follow-up. Routine screening mammography. A lay language report of this examination will be provided to the patient. BI-RADS Category 2: Benign Dictated by Anton Majano MD @ 11/20/2024 11:05:21 AM jj/Dictated by: Anton Majano MD @ 11/20/2024 11:05:00 AM (Electronically Signed)
--- NOTE | 2024-11-20 10:15 | CRLHL7_ITS ---
For Patients: As a result of the Cures Act, medical imaging exams and procedure reports are released immediately into your electronic medical record. You may view this report before your referring provider. If you have questions, please contact your health care provider. SEE DIGITAL DIAGNOSTIC BILATERAL MAMMOGRAM PERFORMED SAME DAY CRL:norma green/Dictated by: Anton Majano MD @ 11/20/2024 11:05:00 AM (Electronically Signed)
== END 2024-11-20 09:26 | disposition home or self-care (01) ==
LOC: MAMMO 09:25
PROVIDERS: PCP Nurse Practitioner Family; Visit Provider Internal Medicine Hematology & Oncology
DX: C50.912 Malignant neoplasm of unspecified site of left female breast (principal); C50.911 Malignant neoplasm of unspecified site of right female breast; N63.10 Unspecified lump in the right breast, unspecified quadrant; R92.333 Mammographic heterogeneous density, bilateral breasts; D17.79 Benign lipomatous neoplasm of other sites
CPT/HCPCS: 76642; 77066; G0279